=== PATIENT | female | born 1965 | race Caucasian/White ===

== ENCOUNTER 2016-03-17 10:05 | Emergency (ER) | payer BC ==
[~2016-03-17 10:05] MED LIST: AMIT25TA2; FLEXERIL; FLEXERIL OR; IBUPPOW25 OR; TOPI25TA2 OR; TRAM50TA2; TRAM50TA2 OR; VICO5TAB; VICO5TAB OR
--- NOTE | 2016-03-17 10:38 | EDDOCDS ---
Nurse's Notes [facility] Name: Annabella Rodriguez Age: 50 yrs Sex: Female : 1965 Arrival Date: 03/17/2016 Time: 10:05 Bed Triage 1 Private MD: Hermelindo Desouza A. Diagnosis: Acute upper respiratory infection, unspecified Presentation: 03/17 10:09 Presenting complaint: Patient states: Pt presents with c/ sore throat ears hurt dls vomiting since last night. Risk factors: Stridor is not present. Drooling is not present. Shortness of breath is not present. Cellulitis is not present. Adult Sepsis Screening: The patient does not have new or worsening altered mentation. Patient's respiratory rate is less than 22. Systolic blood pressure is greater than 100. Patient has a qSOFA score of 0- Negative Sepsis Screen. Suicide/Homicide risk assessment- the patient denies having any suicidal and/or homicidal ideations and does not present with any other emotional, behavioral or mental health complaints. 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 Transition of care: patient was not received from another setting of care. 10:09 Acuity: ERIK Level 4 dls 10:09 Method Of Arrival: Walkin/Carried/Asstd dls Triage Assessment: 10:11 General: Appears in no apparent distress, slender, well nourished, Behavior is dls cooperative. Pain: Pain currently is 9 out of 10 on a pain scale. HIV screening NA for this visit Offered previously. 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 No barriers to communication noted, The patient speaks fluent Bahraini. - Family history: Not pertinent. - : The pt / caregiver states he / she is not on anticoagulants. Home medication list is obtained from the patient. - Exposure Risk Screening:: None identified. Screenin:35 Screening information is obtained from the patient. Fall risk: No risks identified. jmk Assistance ADL's: requires no assistance with activities of daily living. Abuse/DV Screen: The patient / caregiver reports he/she is: not in a situation that causes fear, pain or injury. Nutritional screening: No deficits noted. Advance Directives: Currently, there is no health care proxy. There is no active DNR order. There is no living will. There is no Power of Clamp Operator. Advance directive information has not previously been placed in an [facility] medical record. home support is adequate. Assessment: 10:35 General: Appears in no apparent distress, without resp distress. conversing lengthy jmk sentences without resp interruption. + nasal congestion noted. EENT: Respiratory: Airway is patent Respiratory effort is even, unlabored, Respiratory pattern is regular. Vital Signs: 10:06 BP 106 / 65; Pulse 73; Resp 18 S; Temp 96.6(O); Pulse Ox 100% on R/A; Weight 58.06 kg dd6 (R); Height 5 ft. 3 in. (160.02 cm) (R); 10:06 Body Mass Index 22.67 (58.06 kg, 160.02 cm) dd6 Vitals: 10:06 Log In Time: March 17, 2016 at 10:04. dd6 ED Course: 10:06 Patient visited by Jorge Luis Child PCA. dd6 10:06 Hermelindo Desouza is Private Physician. dd6 10:06 Patient moved to Waiting dd6 10:07 Patient moved to Pre RCE dd6 10:11 [facility] Butler [facility] dk1 10:11 Lexi Milan MD is Attending Physician. dk1 10:11 Triage Initiated dls 10:13 Patient moved to Triage 1 dls 10:14 Patient visited by Daniel Butler PA-C. dk1 10:26 Hermelindo Desouza is Referral Physician. dk1 10:35 The patient / caregiver is instructed regarding the plan of care and ED course. jmk 10:35 No IV's were initiated during this patient's visit. No procedures done that require jmk assistance. 10:37 [facility] Payment Agreement was scanned into [employer] and attached to record. jp5 Order Results: There are currently no results for this order. Outcome: 10:29 Discharge ordered by Provider. dk1 10:35 Discharge Assessment: Patient awake, alert and oriented x 3. No cognitive and/or jmk functional deficits noted. Patient verbalized understanding of disposition instructions. patient administered narcotics - no. The following High Risk Discharge criteria are identified: None. Condition: good. Discharge instructions given to patient, Instructed on discharge instructions, follow up and referral plans. medication usage, Demonstrated understanding of instructions, medications, Pt was receptive of discharge instructions/ teaching. No special radiology studies were completed. Property :Personal belongings accompany Pt. 10:37 Patient left the ED. mark Signatures: Theodore Cooper,RN Erin Mina RN RN dls Keyes, David, PA-C PA-C dk1 Jorge Luis Child PCA [facility] dd6 Jessica Peraza jp5 MTDD
--- NOTE | 2016-03-17 10:38 | EDDOCDS ---
Physician Documentation [facility] Name: Annabella Rodriguez Age: 50 yrs Sex: Female : 1965 Arrival Date: 03/17/2016 Time: 10:05 Bed Triage 1 Private MD: Hermelindo Desouza A. Disposition: 03/17/16 10:29 Discharged to Home/Self Care. Impression: Acute upper respiratory infection, unspecified. - Condition is Stable. - Discharge Instructions: Upper Respiratory Infection, Adult. - Prescriptions for Tylenol 325 mg Oral Tablet - take 2 tablet by ORAL route every 6 hours as needed; 1 bottle. Mucinex 600 mg - take 1 tablet by ORAL route 2 times per day; 30 tablet. benzonatate 200 mg Oral Capsule - take 1 capsule by ORAL route 3 times per day As needed; 30 capsule. - Work Release Form - 2 day, Medication Reconciliation, Local Pharmacy Hours form. - Follow up: Hermelindo Desouza; When: 2 - 3 days. - Problem is new. - Symptoms are unchanged. Historical: - Allergies: no known allergies; - PSHx: Cholecystectomy; - Social history: Smoking status: Patient uses tobacco products, light tobacco smoker. No barriers to communication noted, The patient speaks fluent Estonian. - Family history: Not pertinent. - : The pt / caregiver states he / she is not on anticoagulants. Home medication list is obtained from the patient. - Exposure Risk Screening:: None identified. 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 3 in. (160.02 cm) (R); 10:06 Body Mass Index 22.67 (58.06 kg, 160.02 cm) dd6 MDM: 10:37 [facility] Payment Agreement was scanned into [employer] and attached to record. jp5 10:38 Financial registration complete. jp5 Signatures: Theodore Cooper RN RN jmk Scott, Debra, RN RN dls Keyes, David, HANNAH PAJessica Motta jp5 The chart was reviewed and I authenticate all verbal orders and agree with the evaluation and treatment provided.Attachments: 10:37 [facility] Payment Agreement jp5 MTDD
--- NOTE | 2016-03-19 11:38 | EDDOCDS ---
Physician Documentation [facility] Name: Annabella Rodriguez Age: 50 yrs Sex: Female : 1965 Arrival Date: 03/17/2016 Time: 10:05 Bed Triage 1 Private MD: Hermelindo Desouza A. Disposition: 03/17/16 10:29 Discharged to Home/Self Care. Impression: Acute upper respiratory infection, unspecified. - Condition is Stable. - Discharge Instructions: Upper Respiratory Infection, Adult. - Prescriptions for Tylenol 325 mg Oral Tablet - take 2 tablet by ORAL route every 6 hours as needed; 1 bottle. Mucinex 600 mg - take 1 tablet by ORAL route 2 times per day; 30 tablet. benzonatate 200 mg Oral Capsule - take 1 capsule by ORAL route 3 times per day As needed; 30 capsule. - Work Release Form - 2 day, Medication Reconciliation, Local Pharmacy Hours form. - Follow up: Hermelindo Desouza; When: 2 - 3 days. - Problem is new. - Symptoms are unchanged. Historical: - Allergies: no known allergies; - PSHx: Cholecystectomy; - Social history: Smoking status: Patient uses tobacco products, light tobacco smoker. No barriers to communication noted, The patient speaks fluent Nepali. - Family history: Not pertinent. - : The pt / caregiver states he / she is not on anticoagulants. Home medication list is obtained from the patient. - Exposure Risk Screening:: None identified. 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 3 in. (160.02 cm) (R); 10:06 Body Mass Index 22.67 (58.06 kg, 160.02 cm) dd6 MDM: 10:37 [facility] Payment Agreement was scanned into [employer] and attached to record. jp5 10:38 Financial registration complete. jp5 14:44 T-Sheet-- Draft Copy was scanned into [employer] and attached to record. gb Signatures: Theodore Cooper RN RN Erin Solano RN RN dls Barnhardt, Gloria, Reg Reg gb Daniel Butler PA-C PA-C dk1 Jessica Peraza jp5 The chart was reviewed and I authenticate all verbal orders and agree with the evaluation and treatment provided.Attachments: 10:37 [facility] Payment Agreement jp5 14:44 T-Sheet-- Draft Copy gb Chart Complete MTDD
--- NOTE | 2016-03-19 11:38 | EDDOCDS ---
Nurse's Notes [facility] Name: Annabella Rodriguez Age: 50 yrs Sex: Female : 1965 Arrival Date: 03/17/2016 Time: 10:05 Bed Triage 1 Private MD: Hermelindo Desouza A. Diagnosis: Acute upper respiratory infection, unspecified Presentation: 03/17 10:09 Presenting complaint: Patient states: Pt presents with c/ sore throat ears hurt dls vomiting since last night. Risk factors: Stridor is not present. Drooling is not present. Shortness of breath is not present. Cellulitis is not present. Adult Sepsis Screening: The patient does not have new or worsening altered mentation. Patient's respiratory rate is less than 22. Systolic blood pressure is greater than 100. Patient has a qSOFA score of 0- Negative Sepsis Screen. Suicide/Homicide risk assessment- the patient denies having any suicidal and/or homicidal ideations and does not present with any other emotional, behavioral or mental health complaints. Status: Patient is not a senior field service engineer or dependent. Transition of care: patient was not received from another setting of care. 10:09 Acuity: ERIK Level 4 dls 10:09 Method Of Arrival: Walkin/Carried/Asstd dls Triage Assessment: 10:11 General: Appears in no apparent distress, slender, well nourished, Behavior is dls cooperative. Pain: Pain currently is 9 out of 10 on a pain scale. HIV screening NA for this visit Offered previously. 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 No barriers to communication noted, The patient speaks fluent Samoan. - Family history: Not pertinent. - : The pt / caregiver states he / she is not on anticoagulants. Home medication list is obtained from the patient. - Exposure Risk Screening:: None identified. Screenin:35 Screening information is obtained from the patient. Fall risk: No risks identified. jmk Assistance ADL's: requires no assistance with activities of daily living. Abuse/DV Screen: The patient / caregiver reports he/she is: not in a situation that causes fear, pain or injury. Nutritional screening: No deficits noted. Advance Directives: Currently, there is no health care proxy. There is no active DNR order. There is no living will. There is no Power of Vocational Training Director. Advance directive information has not previously been placed in an [facility] medical record. home support is adequate. Assessment: 10:35 General: Appears in no apparent distress, without resp distress. conversing lengthy jmk sentences without resp interruption. + nasal congestion noted. EENT: Respiratory: Airway is patent Respiratory effort is even, unlabored, Respiratory pattern is regular. Vital Signs: 10:06 BP 106 / 65; Pulse 73; Resp 18 S; Temp 96.6(O); Pulse Ox 100% on R/A; Weight 58.06 kg dd6 (R); Height 5 ft. 3 in. (160.02 cm) (R); 10:06 Body Mass Index 22.67 (58.06 kg, 160.02 cm) dd6 Vitals: 10:06 Log In Time: March 17, 2016 at 10:04. dd6 ED Course: 10:06 Patient visited by Jorge Luis Child PCA. dd6 10:06 Hermelindo Desouza is Private Physician. dd6 10:06 Patient moved to Waiting dd6 10:07 Patient moved to Pre RCE dd6 10:11 Daniel Butler [facility]. dk1 10:11 Lexi Milan MD is Attending Physician. dk1 10:11 Triage Initiated dls 10:13 Patient moved to Triage 1 dls 10:14 Patient visited by Daniel Butler PA-C. dk1 10:26 Hermelindo Desouza is Referral Physician. dk1 10:35 The patient / caregiver is instructed regarding the plan of care and ED course. jmk 10:35 No IV's were initiated during this patient's visit. No procedures done that require jmk assistance. 10:37 [facility] Payment Agreement was scanned into [employer] and attached to record. jp5 14:44 T-Sheet-- Draft Copy was scanned into [employer] and attached to record. gb Order Results: There are currently no results for this order. Outcome: 10:29 Discharge ordered by Provider. dk1 10:35 Discharge Assessment: Patient awake, alert and oriented x 3. No cognitive and/or jmk functional deficits noted. Patient verbalized understanding of disposition instructions. patient administered narcotics - no. The following High Risk Discharge criteria are identified: None. Condition: good. Discharge instructions given to patient, Instructed on discharge instructions, follow up and referral plans. medication usage, Demonstrated understanding of instructions, medications, Pt was receptive of discharge instructions/ teaching. No special radiology studies were completed. Property :Personal belongings accompany Pt. 10:37 Patient left the ED. mark Signatures: Theodore Cooper RN RN jmk Scott, Debra, RN RN dls Barnhardt, Gloria, Reg Reg Daniel Eldridge PA-C PAFeliciano dk1 Jorge Luis Child PCA SPACE PLANNER dd6 Jessica Peraza jp5 Chart Complete MTDD
--- NOTE | 2016-03-19 11:38 | EDDOCDS ---
Physician Documentation [facility] Name: Annabella Rodriguez Age: 50 yrs Sex: Female : 1965 Arrival Date: 03/17/2016 Time: 10:05 Bed Triage 1 Private MD: Hermelindo Desouza A. Disposition: 03/17/16 10:29 Discharged to Home/Self Care. Impression: Acute upper respiratory infection, unspecified. - Condition is Stable. - Discharge Instructions: Upper Respiratory Infection, Adult. - Prescriptions for Tylenol 325 mg Oral Tablet - take 2 tablet by ORAL route every 6 hours as needed; 1 bottle. Mucinex 600 mg - take 1 tablet by ORAL route 2 times per day; 30 tablet. benzonatate 200 mg Oral Capsule - take 1 capsule by ORAL route 3 times per day As needed; 30 capsule. - Work Release Form - 2 day, Medication Reconciliation, Local Pharmacy Hours form. - Follow up: Hermelindo Desouza; When: 2 - 3 days. - Problem is new. - Symptoms are unchanged. Historical: - Allergies: no known allergies; - PSHx: Cholecystectomy; - Social history: Smoking status: Patient uses tobacco products, light tobacco smoker. No barriers to communication noted, The patient speaks fluent Latvian. - Family history: Not pertinent. - : The pt / caregiver states he / she is not on anticoagulants. Home medication list is obtained from the patient. - Exposure Risk Screening:: None identified. 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 3 in. (160.02 cm) (R); 10:06 Body Mass Index 22.67 (58.06 kg, 160.02 cm) dd6 MDM: 10:37 [facility] Payment Agreement was scanned into [employer] and attached to record. jp5 10:38 Financial registration complete. jp5 14:44 T-Sheet-- Draft Copy was scanned into [employer] and attached to record. gb Signatures: Theodore Cooper RN RN Erin Solano RN RN dls Barnhardt, Gloria, Reg Reg gb Daniel Butler PA-C PA-C dk1 Jessica Peraza jp5 The chart was reviewed and I authenticate all verbal orders and agree with the evaluation and treatment provided.Attachments: 10:37 [facility] Payment Agreement jp5 14:44 T-Sheet-- Draft Copy gb Chart Complete MTDD
== END 2016-03-17 10:37 | disposition home or self-care (01) ==
LOC: M ED 10:05
DX: J06.9 Acute upper respiratory infection, unspecified (principal); Z90.49 Acquired absence of other specified parts of digestive tract; Z72.0 Tobacco use

== ENCOUNTER 2016-07-11 23:06 | Emergency (ER) | payer BC ==
[~2016-07-11] VITALS: Ht 160 cm; Wt 58.1 kg
[2016-07-11 23:07] VITALS: BP 134/84
[2016-07-12] MEDS ORDERED: NAPR500T2 PO (00:07)
[2016-07-12] MEDS: NAPROXEN 250 MG TAB PO ONE (00:07)
[2016-07-12] MEDS ORDERED: KEFL500C7 PO (00:07)
[2016-07-12] MEDS: CEPHALEXIN 500 MG CAP PO ONE (00:07)
[2016-07-12] MEDS ORDERED: NAPR500T PO (00:08)
[2016-07-13] MEDS ORDERED: HYDR-3713 PO (00:36)
[2016-07-13] MEDS ORDERED: CLEO300C2 PO (00:36)
== END 2016-07-12 00:16 | disposition home or self-care (01) ==
LOC: M ED 23:47
DX: L03.113 Cellulitis of right upper limb (principal); S60.561A Insect bite (nonvenomous) of right hand, initial encounter; X58.XXXA Exposure to other specified factors, initial encounter; Y92.89 Other specified places as the place of occurrence of the external cause; Y93.89 Activity, other specified; Y99.8 Other external cause status; F17.210 Nicotine dependence, cigarettes, uncomplicated; Z79.899 Other long term (current) drug therapy

== ENCOUNTER 2016-07-12 21:40 | Emergency (ER) | payer BC ==
[~2016-07-12] VITALS: Ht 160 cm; Wt 58.1 kg
[~2016-07-12 21:40] MED LIST changes: +KEFL500C7 PO; +NAPR500T PO; +NAPR500T2 PO
[2016-07-12] MEDS ORDERED: MORPHINE 4 MG/ML 1ML SYRINGE IV ONE (23:15)
[2016-07-12] MEDS ORDERED: CLINDAMYCIN 600 MG in APPROPRIATE DILUENT 1 EA IV ONE (23:15)
[2016-07-12 23:50] LABS: BASO % 0.6 % (0.0-1.0); EOS # 0.3 K/mm3 (0.0-0.50); EOS % 5.2 % (0.0-3.0); LARGE UNSTAINED CELL # 0.1 K/mm3 (0.0-0.4); LARGE UNSTAINED CELL % 2.4 % (0.0-4.0); LYMPH # 2.3 K/mm3 (1.5-4.5); LYMPH % 37.8 % (24.0-44.0); MEAN CORPUSCULAR HEMOGLOBIN 31.2 pg (27.0-33.0); MEAN CORPUSCULAR HGB CONC 32.4 g/dl (32.0-36.5); MEAN CORPUSCULAR VOLUME 96.3 fl (80.0-96.0); MONO # 0.3 K/mm3 (0.0-0.8); MONO % 5.4 % (0.0-5.0); NEUTROPHILS # 2.8 K/mm3 (1.8-7.7); NEUTROPHILS % 48.6 % (36.0-66.0); PLATELET COUNT, AUTOMATED 178 k/mm3 (150-450); RED CELL DISTRIBUTION WIDTH 12.3 % (11.5-14.5); WHITE BLOOD COUNT 5.7 K/mm3 (4.0-10.0)
[2016-07-13 00:06] LABS: ERYTHROCYTE SEDIMENTATION RATE 8 mm/hr (0-30)
[2016-07-13 00:13] VITALS: BP 127/88
[2016-07-13 00:22] LABS: ANION GAP 5 MEQ/L (8-16); BLOOD UREA NITROGEN 15 MG/DL (7-18); CALCIUM LEVEL 9.1 MG/DL (8.5-10.1); CARBON DIOXIDE LEVEL 28 MEQ/L (21-32); CHLORIDE LEVEL 111 MEQ/L (98-107); CREATININE FOR GFR 0.73 MG/DL (0.55-1.02); GLOMERULAR FILTRATION RATE > 60.0 (>51); GLUCOSE, FASTING 93 MG/DL (70-105); POTASSIUM SERUM 3.8 MEQ/L (3.5-5.1); SODIUM LEVEL 144 MEQ/L (136-145)
[2016-07-13] MEDS ORDERED: HYDR-3713 PO (00:36)
[2016-07-13] MEDS ORDERED: CLEO300C2 PO (00:36)
[2016-07-13] MEDS ORDERED: GI COCKTAIL 50ML BTL(HYOSCYAMINE/MAALOX/LIDOCAINE VISCOUS)(1:3:1) PO ONE (00:45)
== END 2016-07-13 00:54 | disposition home or self-care (01) ==
LOC: M ED 22:46
DX: L03.113 Cellulitis of right upper limb (principal); F17.210 Nicotine dependence, cigarettes, uncomplicated

== ENCOUNTER 2016-08-07 10:52 | Emergency (ER) | payer BC ==
[~2016-08-07] VITALS: Ht 160 cm; Wt 58.5 kg
[2016-08-07 10:52] VITALS: BP 133/75
[~2016-08-07 10:52] MED LIST changes: +CLEO300C2 PO; +HYDR-3713 PO
[2016-08-07] MEDS ORDERED: BENA25TA9 PO (11:28)
[2016-08-07] MEDS ORDERED: PRED50TA PO (11:29)
[2016-08-07] MEDS ORDERED: KEFL500C7 PO (11:29)
== END 2016-08-07 11:45 | disposition home or self-care (01) ==
LOC: M ED 11:33
DX: T78.40XA Allergy, unspecified, initial encounter (principal); M79.89 Other specified soft tissue disorders; F17.210 Nicotine dependence, cigarettes, uncomplicated

== ENCOUNTER 2016-10-26 15:02 | Emergency (ER) | payer BC ==
[~2016-10-26] VITALS: Ht 160 cm; Wt 59.0 kg
[~2016-10-26 15:02] MED LIST changes: +BENA25TA10 PO; +KEFL500C17 PO; -KEFL500C7 PO; -NAPR500T2 PO; +NAPR500T3 PO; +PRED50TA PO
[2016-10-26 15:03] VITALS: BP 124/78
[2016-10-26] MEDS ORDERED: IBUPROFEN 600 MG TAB PO ONE (15:30)
[2016-10-26] MEDS ORDERED: IBUP-1022 PO (16:19)
--- NOTE | 2016-10-26 16:23 | REP ---
Left knee five views : There is no fracture or dislocation. Mineralization and joint spaces are normal. There are no calcifications or foreign bodies. Impression: Negative left knee . Signed by Bubba Lundy MD 10/26/2016 04:16 P
== END 2016-10-26 16:39 | disposition home or self-care (01) ==
LOC: M ED 15:02
DX: S80.02XA Contusion of left knee, initial encounter (principal); S80.212A Abrasion, left knee, initial encounter; W19.XXXA Unspecified fall, initial encounter; Y92.410 Unspecified street and highway as the place of occurrence of the external cause; Y93.9 Activity, unspecified; Y99.9 Unspecified external cause status

== ENCOUNTER 2016-12-21 22:04 | Emergency (ER) | payer BC ==
[~2016-12-21] VITALS: Ht 160 cm; Wt 58.6 kg
[~2016-12-21 22:04] MED LIST changes: +IBUP-1022 PO
[2016-12-21] MEDS ORDERED: ALEV220T26 PO (23:21)
[2016-12-22] MEDS ORDERED: NS 1,000 ML IV ONE (03:30)
[2016-12-22] MEDS ORDERED: KETOROLAC 30 MG/ML VIAL (J1885) IV ONE (03:30)
[2016-12-22 05:43] VITALS: BP 103/64
== END 2016-12-22 05:46 | disposition home or self-care (01) ==
LOC: M ED 22:04
DX: J06.9 Acute upper respiratory infection, unspecified (principal); F17.200 Nicotine dependence, unspecified, uncomplicated
CPT/HCPCS: 87804; 96361; 96374; 99283; J1885

== ENCOUNTER → 2017-04-30 | Outpatient (CLI) | payer BC | LOC: M WHC 15:37 | DX: Z12.31 Encounter for screening mammogram for malignant neoplasm of breast (principal) | CPT/HCPCS: 77067 ==

== ENCOUNTER → 2017-04-30 | Outpatient (REF) | payer BC ==
[2017-05-02 14:10] LABS: HPV HYBRID CAPTURE II Negative (Negative)
== END ==
LOC: M SFHCWAGY 15:41
DX: Z12.4 Encounter for screening for malignant neoplasm of cervix (principal)
CPT/HCPCS: G0123

== ENCOUNTER 2017-06-14 13:37 | Emergency (ER) | payer BC | END 2017-06-14 14:55 | disposition home or self-care (01) | LOC: M ED 13:37 | DX: L03.114 Cellulitis of left upper limb (principal); F17.200 Nicotine dependence, unspecified, uncomplicated | CPT/HCPCS: 99282 ==

== ENCOUNTER 2017-09-16 11:14 | Emergency (ER) | payer BC ==
[2017-09-16 12:18] LABS: AMORPHOUS SEDIMENT RFX SMALL (NEGATIVE); KETONE, URINE AUTO RFX NEGATIVE (NEGATIVE); LEUKOCYTE ESTERASE UR AUTO RFX NEGATIVE (NEGATIVE); MUCUS, URINE RFX SMALL (NEGATIVE); NITRITE, URINE AUTO RFX NEGATIVE (NEGATIVE); RBC, URINE AUTO RFX 63 /HPF (0-3); SPECIFIC GRAVITY UR AUTO RFX 1.019 (1.002-1.035); SQUAM EPITHELIAL CELL UR AURFX 10 /HPF (0-6); WBC, URINE AUTO RFX 4 /HPF (0-3)
[2017-09-16] MEDS: ONDANSETRON 4MG/2ML VIAL (J2405) IV (12:20)
[2017-09-16] MEDS: NS 1,000 ML IV (12:20)
[2017-09-16 12:22] LABS: BASO % 0.6 % (0.0-1.0); EOS # 0.1 10^3/uL (0.0-0.50); EOS % 2.1 % (0.0-3.0); HEMATOCRIT 39.4 % (36.0-47.0); HEMOGLOBIN 13.6 g/dl (12.0-15.5); IMMATURE GRANULOCYTE % 0.3 % (0-3.0); LYMPH # 2.4 10^3/uL (1.5-4.5); MEAN CORPUSCULAR HEMOGLOBIN 31.4 pg (27.0-33.0); MEAN CORPUSCULAR HGB CONC 34.5 g/dl (32.0-36.5); MONO # 0.4 10^3/uL (0.0-0.8); MONO % 6.5 % (0.0-5.0); NEUTROPHILS # 3.8 10^3/uL (1.8-7.7); NEUTROPHILS % 55.5 % (36.0-66.0); PLATELET COUNT, AUTOMATED 193 10^3/uL (150-450); RED BLOOD COUNT 4.33 10^6/uL (4.00-5.40); RED CELL DISTRIBUTION WIDTH 12.7 % (11.5-14.5); WHITE BLOOD COUNT 6.8 10^3/uL (4.0-10.0)
[2017-09-16] MEDS: KETOROLAC 30 MG/ML VIAL (J1885) IV (12:23)
[2017-09-16 12:34] LABS: ALBUMIN 3.8 GM/DL (3.2-5.2); ALBUMIN/GLOBULIN RATIO 0.97 (1.00-1.93); ALKALINE PHOSPHATASE 70 U/L (45-117); ALT/SGPT 22 U/L (12-78); ANION GAP 12 MEQ/L (8-16); AST/SGOT 20 U/L (7-37); BILIRUBIN,DIRECT 0.2 MG/DL (0.0-0.2); BLOOD UREA NITROGEN 14 MG/DL (7-18); CALCIUM LEVEL 9.2 MG/DL (8.5-10.1); CARBON DIOXIDE LEVEL 25 MEQ/L (21-32); CHLORIDE LEVEL 107 MEQ/L (98-107); CREATININE FOR GFR 1.01 MG/DL (0.55-1.30); GLOMERULAR FILTRATION RATE > 60.0 (>51); GLUCOSE, FASTING 96 MG/DL (70-100); LIPASE 157 U/L (73-393); POTASSIUM SERUM 3.7 MEQ/L (3.5-5.1); SODIUM LEVEL 144 MEQ/L (136-145); TOTAL PROTEIN 7.7 GM/DL (6.4-8.2)
[2017-09-16] MEDS: MORPHINE 4 MG/ML 1ML VIAL/SYRINGE (J2270) IV (12:57)
[2017-09-16] MEDS: CIPROFLOXACIN 500 MG TAB PO (13:30)
== END 2017-09-16 13:44 | disposition home or self-care (01) ==
LOC: M ED 11:14
DX: N20.1 Calculus of ureter (principal); N30.00 Acute cystitis without hematuria; Z72.0 Tobacco use
CPT/HCPCS: J2270

== ENCOUNTER → 2017-10-03 | Outpatient (CLI) | payer BC | LOC: M RAD 14:24 | DX: M25.562 Pain in left knee (principal) | CPT/HCPCS: 73564 ==

== ENCOUNTER 2018-05-15 08:34 | Emergency (ER) | payer BC ==
[~2018-05-15] VITALS: Ht 162.6 cm; Wt 58.6 kg
[~2018-05-15 08:34] MED LIST changes: +ALEV220T26 PO; +CIPR-249 PO; +NAPR-50 PO; +NAPR-885 PO; -NAPR500T PO; -NAPR500T3 PO; +NORCOTAB PO; +ZOFR4TAB14 PO
[2018-05-15] MEDS ORDERED: KETOROLAC 30 MG/ML VIAL (J1885) IV ONE (08:45)
[2018-05-15] MEDS ORDERED: NS 1,000 ML IV ONE (08:45)
[2018-05-15] MEDS ORDERED: ACETAMINOPHEN 500 MG TAB PO ONE (08:45)
[2018-05-15] MEDS ORDERED: ONDANSETRON 4MG/2ML VIAL (J2405) IV ONE (08:45)
[2018-05-15 09:09] LABS: BASO # 0.1 10^3/uL (0.0-0.2); BASO % 0.8 % (0.0-1.0); EOS # 0.2 10^3/uL (0.0-0.50); EOS % 3.3 % (0.0-3.0); HEMATOCRIT 38.8 % (36.0-47.0); HEMOGLOBIN 13.1 g/dl (12.0-15.5); LYMPH # 2.6 10^3/uL (1.5-4.5); LYMPH % 41.4 % (24.0-44.0); MEAN CORPUSCULAR HGB CONC 33.8 g/dl (32.0-36.5); MEAN CORPUSCULAR VOLUME 94.9 fl (80.0-96.0); MONO # 0.4 10^3/uL (0.0-0.8); MONO % 6.9 % (0.0-5.0); NEUTROPHILS % 47.4 % (36.0-66.0); PLATELET COUNT, AUTOMATED 195 10^3/uL (150-450); RED BLOOD COUNT 4.09 10^6/uL (4.00-5.40); WHITE BLOOD COUNT 6.4 10^3/uL (4.0-10.0)
[2018-05-15] MEDS ORDERED: DILUENT IV ONE (09:15)
[2018-05-15] MEDS ORDERED: NACL IV ONE (09:15)
[2018-05-15] MEDS ORDERED: KETAMINE IV ONE (09:15)
--- NOTE | 2018-05-15 09:29 | REP ---
Clinical: Right-sided abdominal pain. Technique: Axial noncontrast images from the lung bases to the pubic symphysis with coronal and sagittal re-formations. Comparison: 09/16/2017. Findings: The right kidney demonstrates few nonobstructing intrarenal calculi measuring up to 2.5 mm while the left kidney includes a 10 mm nonobstructing calculus. There is no evidence for hydroureteronephrosis or perinephric stranding. The bladder is unremarkable. Liver, spleen, pancreas, and bilateral adrenal glands are normal. The patient is status post cholecystectomy. The enteric system suggests fecal stasis and possible constipation. Pelvis demonstrates normal bladder and age-appropriate uterus/adnexa. No ascites. No free air. No obvious adenopathy. Abdominal aorta without aneurysm. Musculoskeletal structures are intact. Impression: 1. Bilateral nonobstructing intrarenal calculi without hydronephrosis or perinephric stranding. 2. Moderate fecal stasis requires correlation and may be related to patient's symptoms. Electronically Signed by Blake Gonzáles MD 05/15/2018 09:20 A
[2018-05-15 09:37] LABS: ALBUMIN 3.6 GM/DL (3.2-5.2); ALT/SGPT 27 U/L (12-78); AMYLASE 71 U/L (25-115); BILIRUBIN,DIRECT 0.4 MG/DL (0.0-0.2); BILIRUBIN,TOTAL 1.7 MG/DL (0.2-1.0); BLOOD UREA NITROGEN 18 MG/DL (7-18); CALCIUM LEVEL 8.6 MG/DL (8.5-10.1); CARBON DIOXIDE LEVEL 26 MEQ/L (21-32); CHLORIDE LEVEL 110 MEQ/L (98-107); GLOMERULAR FILTRATION RATE > 60.0 (>51); GLUCOSE, FASTING 84 MG/DL (70-100); LIPASE 131 U/L (73-393); POTASSIUM SERUM 4.4 MEQ/L (3.5-5.1); SODIUM LEVEL 144 MEQ/L (136-145); TOTAL PROTEIN 6.8 GM/DL (6.4-8.2)
[2018-05-15] MEDS ORDERED: BACTRIM 160MG/800MG DS TAB PO ONE (11:15)
[2018-05-15] MEDS ORDERED: IBUP-1022 PO (11:40)
[2018-05-15] MEDS ORDERED: ZOFR4TAB16 PO (11:40)
[2018-05-15] MEDS ORDERED: ACET650T3 PO (11:41)
[2018-05-15] MEDS ORDERED: BACT800T5 PO (11:44)
[2018-05-15 11:49] VITALS: BP 121/63
== END 2018-05-15 12:06 | disposition home or self-care (01) ==
LOC: M ED 08:34
DX: N39.0 Urinary tract infection, site not specified (principal); R11.0 Nausea; K56.41 Fecal impaction; N20.0 Calculus of kidney; F17.200 Nicotine dependence, unspecified, uncomplicated
CPT/HCPCS: 74176; 80048; 80076; 81001; 82150; 83690; 85025; 87086; 93041; 94760; 96374; 96375; 99284; J1885; J2405

== ENCOUNTER → 2018-07-26 | Outpatient (CLI) | payer BC ==
[~2018-07-26] MED LIST changes: +ACET650T3 PO; +BACT800T5 PO; +HYDR-3715 PO; -NAPR-50 PO; +NAPR-837 PO; -NORCOTAB PO; +ZOFR4TAB16 PO
--- NOTE | 2018-07-27 08:04 | REPMRS ---
Patient History The patient states she had a clinical breast exam in 07/2018. Patient is postmenopausal and had first child at age 32. Family history of breast cancer at age 50 or over in paternal aunt, colorectal cancer at age 50 or over in maternal uncle, pancreatic cancer in maternal uncle. Took hormonal contraceptives for 10 years. Digital Woman Screen Mammo: July 26, 2018 - Exam #: [id number] Bilateral CC and MLO view(s) were taken. Technologist: Vicki Washington, Technologist Prior study comparison: April 30, 2017, digital woman screen mammo performed at [facility]. August 28, 2015, right breast digital mammo diagnostic unilateral, performed at [facility]. January 30, 2015, digital woman screen mammo performed at [facility]. FINDINGS: There are scattered fibroglandular densities. The previously noted microcalcifications in the right breast are no longer apparent. There is a moderate amount of residual fibroglandular tissue which is fairly symmetric. There is no interval development of dominant mass, architectural distortion, or clustered microcalcification typical of malignancy. There has been no change in the appearance of the mammogram from the prior studies. 3-D tomosynthesis shows no additional findings. Assessment: BI-RADS/ACR category 1 mammogram. Negative Mammogram. Recommendation Routine screening mammogram of both breasts in 1 year (for women over age 40). This patient's Lifetime Breast Cancer RIsk is estimated at 19.4 %. This mammogram was interpreted with the aid of an FDA-approved computer-aided dectection system. Electronically Signed By: Nir Williamson MD 07/27/18 [id number]
== END ==
LOC: M WHC 14:32
PROVIDERS: ATTEND Nurse Practitioner Family
DX: Z12.31 Encounter for screening mammogram for malignant neoplasm of breast (principal); Z80.3 Family history of malignant neoplasm of breast

== ENCOUNTER 2019-01-07 17:00 | Emergency (ER) | payer BC ==
[~2019-01-07] VITALS: Ht 160 cm; Wt 64.0 kg
--- NOTE | 2019-01-07 18:16 | REPVR ---
PROCEDURE INFORMATION: Exam: CT Head Without Contrast Exam date and time: 01/07/2019 5:46 PM Clinical history: 53 years old, female; Other: Papal edema TECHNIQUE: Imaging protocol: Computed tomography of the head without contrast. Radiation optimization: All CT scans at this facility use at least one of these dose optimization techniques: automated exposure control; mA and/or kV adjustment per patient size (includes targeted exams where dose is matched to clinical indication); or iterative reconstruction. COMPARISON: No relevant prior studies available. FINDINGS: Brain: Normal. No hemorrhage. Unremarkable white matter. No mass effect. Ventricles: Normal. No ventriculomegaly. Bones/joints: Unremarkable. No acute fracture. Sinuses: Visualized sinuses are unremarkable. No fluid levels. Mastoid air cells: Visualized mastoid air cells are well aerated. Soft tissues: Unremarkable. IMPRESSION: No acute intracranial abnormality. Electronically signed by: Amado Molina On 01/07/2019 18:16:32 PM
[2019-01-07] MEDS ORDERED: KETOROLAC TROMETHAMINE 10 MG TAB PO ONE (20:00)
--- NOTE | 2019-01-07 20:07 | REPVR ---
PROCEDURE INFORMATION: Exam: MR Angiogram Head Without Contrast, Venogram Exam date and time: 01/07/2019 7:50 PM Clinical history: 53 years old, female; Other: Papiloedema, PT seeing visual disturbances; Patient HX: Pappiloedema, visual disturbances; Additional info: Please do mrv TECHNIQUE: Imaging protocol: MR angiogram of the head without contrast. Exam focused on the veins. 3D rendering: MIP reconstructed images were created and reviewed. COMPARISON: CT Head without contrast 01/07/2019 5:44 PM FINDINGS: Superior sagittal sinus: Patent. Straight sinus: Patent. Internal cerebral and cortical veins: Unremarkable as visualized. Transverse sinuses: Patent. Sigmoid sinuses: Patent. Internal jugular veins: Visualized segment patent. IMPRESSION: No acute abnormality. Electronically signed by: Amado Molina On 01/07/2019 20:07:14 PM
[2019-01-07 20:45] VITALS: BP 133/69
[2019-01-08] MEDS ORDERED: NAPR-837 PO (21:23)
== END 2019-01-07 21:01 | disposition home or self-care (01) ==
LOC: M ED 17:00
DX: H53.132 Sudden visual loss, left eye (principal); H54.52A1 Low vision left eye category 1, normal vision right eye; H47.10 Unspecified papilledema; H43.392 Other vitreous opacities, left eye; F17.210 Nicotine dependence, cigarettes, uncomplicated

== ENCOUNTER 2019-01-08 20:12 | Emergency (ER) | payer BC ==
[~2019-01-08] VITALS: Ht 160 cm; Wt 63.6 kg
[2019-01-08] MEDS ORDERED: NAPR-837 PO (21:23)
[2019-01-08 21:30] VITALS: BP 154/73
[2019-01-08] MEDS ORDERED: NAPROXEN 250 MG TAB PO ONE (21:30)
== END 2019-01-08 21:50 | disposition home or self-care (01) ==
LOC: M ED 20:12
DX: H43.393 Other vitreous opacities, bilateral (principal); H53.8 Other visual disturbances; F17.210 Nicotine dependence, cigarettes, uncomplicated; Z79.899 Other long term (current) drug therapy

== ENCOUNTER → 2019-01-10 | Outpatient (CLI) | payer BC ==
[2019-01-10 16:45] LABS: INR 0.98; PROTHROMBIN TIME 12.6 SECONDS (11.8-14.0)
[2019-01-10 16:46] LABS: PARTIAL THROMBOPLASTIN TIME 27.4 SECONDS (25.0-38.4)
[2019-01-10 16:57] LABS: TOTAL PROTEIN 7.2 GM/DL (6.4-8.2)
[2019-01-11 09:16] LABS: CRYOGLOBULINS NEGATIVE (NEGATIVE)
[2019-01-11 13:48] LABS: ALBUMIN % 60.3 % (55.8-66.1)
[2019-01-11 13:49] LABS: ALBUMIN 4.34 GM/DL (3.29-5.55); ALPHA-1-GLOBULIN % 3.9 % (2.9-4.9); ALPHA-1-GLOBULINS 0.28 GM/DL (0.17-0.41); ALPHA-2-GLOBULINS 0.66 GM/DL (0.42-0.99); ALPHA-2-GLOBULINS % 9.1 % (7.1-11.8); BETA-1-GLOBULINS 0.48 GM/DL (0.28-0.60); BETA-1-GLOBULINS % 6.6 % (4.7-7.2); BETA-2-GLOBULINS 0.42 GM/DL (0.19-0.55); BETA-2-GLOBULINS % 5.9 % (3.2-6.5); GAMMA GLOBULIN % 14.2 % (11.1-18.8); GAMMA GLOBULINS 1.02 GM/DL (0.65-1.58)
== END ==
LOC: M LAB 15:08
PROVIDERS: ATTEND Ophthalmology Retina Specialist
DX: H34.8192 Central retinal vein occlusion, unspecified eye, stable (principal)

== ENCOUNTER 2019-02-19 12:08 | Emergency (ER) | payer BC, SELFPAY ==
[~2019-02-19] VITALS: Ht 162.6 cm; Wt 60.0 kg
[2019-02-19] MEDS ORDERED: ONDANSETRON 4MG/2ML VIAL (J2405) IV ONE (12:30)
[2019-02-19] MEDS ORDERED: PANTOPRAZOLE 40MG INJ (PROTONIX) (C9113) IV ONE (12:30)
[2019-02-19] MEDS ORDERED: NS 1,000 ML IV ONE ×2 (12:30→13:45)
[2019-02-19 12:39] LABS: BASO % 0.6 % (0.0-1.0); EOS # 0.1 10^3/uL (0.0-0.5); EOS % 1.8 % (0.0-3.0); HEMATOCRIT 41.5 % (36.0-47.0); HEMOGLOBIN 13.7 g/dl (12.0-15.5); LYMPH % 38.4 % (24.0-44.0); MEAN CORPUSCULAR HEMOGLOBIN 31.2 pg (27.0-33.0); MEAN CORPUSCULAR VOLUME 94.5 fl (80.0-96.0); MONO # 0.3 10^3/uL (0.0-0.8); MONO % 5.5 % (0.0-5.0); NEUTROPHILS # 2.7 10^3/uL (1.5-8.5); NEUTROPHILS % 53.5 % (36.0-66.0); PLATELET COUNT, AUTOMATED 228 10^3/uL (150-450); RED BLOOD COUNT 4.39 10^6/uL (4.00-5.40); WHITE BLOOD COUNT 5.1 10^3/uL (4.0-10.0)
[2019-02-19 13:05] LABS: ALBUMIN 4.2 GM/DL (3.2-5.2); ALT/SGPT 18 U/L (12-78); AMYLASE 54 U/L (25-115); BILIRUBIN,DIRECT 0.4 MG/DL (0.0-0.2); BILIRUBIN,TOTAL 1.9 MG/DL (0.2-1.0); BLOOD UREA NITROGEN 17 MG/DL (7-18); CALCIUM LEVEL 9.3 MG/DL (8.5-10.1); CARBON DIOXIDE LEVEL 25 MEQ/L (21-32); CHLORIDE LEVEL 109 MEQ/L (98-107); GLOMERULAR FILTRATION RATE > 60.0 (>51); GLUCOSE, FASTING 93 MG/DL (70-100); LIPASE 141 U/L (73-393); POTASSIUM SERUM 3.3 MEQ/L (3.5-5.1); SODIUM LEVEL 143 MEQ/L (136-145); TOTAL PROTEIN 7.6 GM/DL (6.4-8.2)
[2019-02-19] MEDS ORDERED: ONDANSETRON 4 MG ORAL DISINTEGRATING TAB (Q0162 PER 1MG) PO ONE (13:45)
[2019-02-19] MEDS: GASTROGRAFIN SOLUTION 30ML PO SCH ×2 (14:15→14:48)
[2019-02-19] MEDS ORDERED: ISOVUE-370 76% 100ML VIAL (Q9967) As Ordered ONE (15:20)
[2019-02-19] MEDS ORDERED: CIPR-249 PO (17:32)
[2019-02-19] MEDS ORDERED: ALIG4CAP PO (17:32)
[2019-02-19] MEDS ORDERED: FLAG500T PO (17:32)
[2019-02-19] MEDS ORDERED: ONDA4TAB6 PO (17:35)
[2019-02-19 17:48] VITALS: BP 112/59
--- NOTE | 2019-02-20 08:04 | REP ---
CT ABDOMEN/PELVIS WITH IV AND ORAL CONTRAST: 02/19/2019. COMPARISON: 05/15/2018. CLINICAL HISTORY: Abdominal pain. TECHNIQUE: Oral contrast 10 mL Gastrografin in 290 mL flavored water, followed by bolus 75 mL Isovue-370, scanning through the abdomen/pelvis with coronal and sagittal reconstructions. FINDINGS: CT ABDOMEN: The lung bases show minor dependent atelectatic changes posteriorly in the deep sulci without effusion, infiltrate, or mass. No nodules. Heart is not enlarged. There is no pericardial thickening or effusion. I see no hiatal hernia. Liver is not enlarged, and shows no focal hepatic mass, biliary dilatation, nor adjacent ascites. There is one tiny low density lesion most consistent with a small cyst or hemangioma in the right hepatic lobe about 5.5 mm. There is no splenomegaly or focal splenic lesion. No upper abdominal ascites. Gallbladder is absent with surgical clips in the fossa. Common duct in the stevie hepatis and pancreatic head has maximum diameter 9.8 mm, normal in a postcholecystectomy patient. Pancreatic duct is not abnormally dilated measuring about 2 mm in the pancreatic body. No peripancreatic adenopathy, fluid collections, mass, or inflammatory change. The adrenal glands are normal. Kidneys show function without stone, mass, or cyst on the right. There is 11 mm x 13 mm stone in the renal pelvis on the left with some minimal pelviectasis and calyectasis. Stone is about 3 mm bigger than on the previous study in the collecting system is new. The ureters show normal course to the bladder and are without filling defect or stone. Abdominal images show that portion of colon with oral contrast extending to the sigmoid. There is diverticulosis scattered in the left colon with areas of collapse but no colitis or diverticulitis evident. Small bowel loops without dilatation. There is no perforation or free air in the abdomen/pelvis. I see no ascites in the abdomen or peroneal gutters. Bone windows show vacuum phenomena at L4-5 with degenerative disc disease at L5-S1 with a few millimeters of retrolisthesis due to facet arthropathy but no spondylolysis. No compression deformities are seen. The lower thoracic vertebral bodies are unremarkable. CT PELVIS: Sacrum, pelvis, acetabuli, hips, and ischia show some degenerative changes which are mild, but no fracture or destructive lesions. Uterus slightly tilted towards the right. I do not see adnexal mass. There is no pelvic free fluid. Bladder is partially filled without mass or wall thickening. However, the distal left colon, sigmoid, and rectum all show wall thickening and some irregular stranding adjacent representing proctosigmoiditis. Small bowel loops in the abdomen with contrast and no dilatation. No ventral or inguinal hernia. IMPRESSION: 1. There is a 13 x 11 mm stone in the left renal pelvis with some mild dilatation of the renal pelvis and collecting system, but no significant ureteral dilatation on the left. Right collecting system and ureter normal, no stone. 2. Some mild diverticulosis left colon. The remainder of the abdominal portion of the colon unremarkable. Small bowel loops intact. 3. Distal left colon, sigmoid, and rectum with wall thickening and some pericolonic stranding representing some colitis or proctosigmoiditis. 4. No ascites in the abdomen or pelvis. No mass in the pelvis. No other significant finding. Electronically Signed by Neal Willoughby MD 02/20/2019 08:14 A
[2019-02-20] MEDS ORDERED: DICY1CAP8 PO (23:22)
[2019-02-20] MEDS ORDERED: ONDA4TAB6 PO (23:22)
[2019-02-20] MEDS ORDERED: NORC1TAB7 PO (23:22)
== END 2019-02-19 17:51 | disposition home or self-care (01) ==
LOC: M ED 12:08
DX: K52.9 Noninfective gastroenteritis and colitis, unspecified (principal); N20.0 Calculus of kidney; K57.30 Diverticulosis of large intestine without perforation or abscess without bleeding; R11.2 Nausea with vomiting, unspecified; Z87.19 Personal history of other diseases of the digestive system; F17.210 Nicotine dependence, cigarettes, uncomplicated; Z79.1 Long term (current) use of non-steroidal anti-inflammatories (NSAID); Z79.899 Other long term (current) drug therapy
CPT/HCPCS: 36415; 74177; 80053; 80076; 81001; 82150; 83690; 85025; 87086; 87507; 96360; 99284; Q0162; Q9963; Q9967

== ENCOUNTER 2019-02-20 18:28 | Emergency (ER) | payer SELFPAY ==
[~2019-02-20] VITALS: Ht 162.6 cm; Wt 62.1 kg
[~2019-02-20 18:28] MED LIST changes: +ALIG4CAP PO; +FLAG500T PO; +ONDA4TAB6 PO
[2019-02-20] MEDS ORDERED: NS 1,000 ML IV ONE ×2 (19:15→21:00)
[2019-02-20] MEDS ORDERED: ONDANSETRON 4MG/2ML VIAL (J2405) IV ONE (19:15)
[2019-02-20] MEDS ORDERED: MORPHINE 4 MG/ML 1ML VIAL/SYRINGE (J2270) IV ONE ×2 (19:15→21:00)
[2019-02-20] MEDS ORDERED: metroNIDAZOLE (FLAGYL) 500 MG TAB PO ONE ×2 (19:30→23:30)
[2019-02-20 19:49] LABS: BASO # 0.1 10^3/uL (0.0-0.2); BASO % 0.9 % (0.0-1.0); EOS # 0.2 10^3/uL (0.0-0.5); EOS % 2.4 % (0.0-3.0); HEMATOCRIT 38.1 % (36.0-47.0); LYMPH # 2.7 10^3/uL (1.5-5.0); LYMPH % 41.4 % (24.0-44.0); MEAN CORPUSCULAR HEMOGLOBIN 31.3 pg (27.0-33.0); MEAN CORPUSCULAR HGB CONC 34.1 g/dl (32.0-36.5); MEAN CORPUSCULAR VOLUME 91.8 fl (80.0-96.0); MONO # 0.3 10^3/uL (0.0-0.8); NEUTROPHILS # 3.3 10^3/uL (1.5-8.5); NEUTROPHILS % 50.1 % (36.0-66.0); PLATELET COUNT, AUTOMATED 202 10^3/uL (150-450); RED BLOOD COUNT 4.15 10^6/uL (4.00-5.40); WHITE BLOOD COUNT 6.6 10^3/uL (4.0-10.0)
[2019-02-20 20:16] LABS: ALBUMIN 3.9 GM/DL (3.2-5.2); BILIRUBIN,DIRECT 0.4 MG/DL (0.0-0.2); BILIRUBIN,TOTAL 1.9 MG/DL (0.2-1.0)
--- NOTE | 2019-02-20 22:40 | REPVR ---
PROCEDURE INFORMATION: Exam: US Abdomen Limited, Right Upper Quadrant Exam date and time: 02/20/19 (9:35pm) Age: 53 years old Clinical history: RUQ pain. Elevated bilirubin. Previous cholecystectomy (in 2014 or 2015). TECHNIQUE: Imaging protocol: Real-time ultrasound of the abdomen with image documentation. Examination was focused on the right upper quadrant. COMPARISON: CT ABDOMEN PELVIS of 02/19/19 FINDINGS: The liver is visually normal in size and texture. Previous cholecystectomy. The CBD is dilated (9-13 mm diameter). No ductal stone is seen. The pancreas appears unremarkable. The right kidney measures 9.9 cm in length, with no hydronephrosis appreciated. No ascites is seen. IMPRESSION: Previous cholecystectomy. CBD is dilated (9-13 mm diameter), which can be seen following cholecystectomy. No ductal stone is identified. No abnormal fluid collections. Further evaluation of the biliary tree can be obtained with MRCP, eg, as felt appropriate. Electronically signed by: Lili Perla On 02/20/2019 22:39:45 PM
[2019-02-20] MEDS ORDERED: DICY1CAP8 PO (23:22)
[2019-02-20] MEDS ORDERED: NORC1TAB7 PO (23:22)
[2019-02-20] MEDS ORDERED: ONDA4TAB6 PO (23:22)
[2019-02-20] MEDS ORDERED: NORCO 5/325MG TABLET (BULK FOR ED) PO ONE (23:30)
[2019-02-20] MEDS ORDERED: DICYCLOMINE 10 MG CAP PO ONE (23:30)
[2019-02-20] MEDS ORDERED: ONDANSETRON 4 MG ORAL DISINTEGRATING TAB (Q0162 PER 1MG) PO ONE (23:30)
[2019-02-20 23:46] VITALS: BP 115/62
--- NOTE | 2019-02-21 16:41 | ED PDOC ---
Post-Departure Follow-Up dr anderson faxed formal report of abdmelisa skinner for fu Stefan Dexter MD Feb 21, 2019 16:41
== END 2019-02-20 23:47 | disposition home or self-care (01) ==
LOC: M ED 18:28
DX: K52.9 Noninfective gastroenteritis and colitis, unspecified (principal); R10.84 Generalized abdominal pain; R11.2 Nausea with vomiting, unspecified; K83.8 Other specified diseases of biliary tract; Z90.49 Acquired absence of other specified parts of digestive tract; F17.210 Nicotine dependence, cigarettes, uncomplicated; Z79.1 Long term (current) use of non-steroidal anti-inflammatories (NSAID); Z79.899 Other long term (current) drug therapy
CPT/HCPCS: 76705; 80047; 80076; 83690; 85025; 96361; 96374; 96375; 96376; 99284; J2270; J2405; Q0162

== ENCOUNTER 2019-02-22 20:22 | Emergency (ER) | payer SELFPAY ==
[~2019-02-22] VITALS: Ht 162.6 cm; Wt 64.4 kg
[2019-02-22 20:22] VITALS: BP 156/84
[~2019-02-22 20:22] MED LIST changes: +DICY1CAP8 PO; +NORC1TAB7 PO
[2019-02-23 01:20] LABS: BASO % 0.6 % (0.0-1.0); EOS # 0.2 10^3/uL (0.0-0.5); EOS % 3.1 % (0.0-3.0); HEMATOCRIT 32.9 % (36.0-47.0); HEMOGLOBIN 10.9 g/dl (12.0-15.5); LYMPH # 3.2 10^3/uL (1.5-5.0); LYMPH % 45.7 % (24.0-44.0); MEAN CORPUSCULAR HEMOGLOBIN 31.3 pg (27.0-33.0); MEAN CORPUSCULAR HGB CONC 33.1 g/dl (32.0-36.5); MEAN CORPUSCULAR VOLUME 94.5 fl (80.0-96.0); MONO # 0.4 10^3/uL (0.0-0.8); MONO % 5.4 % (0.0-5.0); NEUTROPHILS # 3.1 10^3/uL (1.5-8.5); NEUTROPHILS % 44.9 % (36.0-66.0); PLATELET COUNT, AUTOMATED 153 10^3/uL (150-450); RED BLOOD COUNT 3.48 10^6/uL (4.00-5.40)
[2019-02-23 01:50] LABS: ALBUMIN 3.2 GM/DL (3.2-5.2); BILIRUBIN,DIRECT 0.2 MG/DL (0.0-0.2); BILIRUBIN,TOTAL 0.7 MG/DL (0.2-1.0); TOTAL PROTEIN 5.8 GM/DL (6.4-8.2)
== END 2019-02-23 02:25 | disposition home or self-care (01) ==
LOC: M ED 20:22
DX: K52.9 Noninfective gastroenteritis and colitis, unspecified (principal)

== ENCOUNTER 2019-07-08 19:38 | Emergency (ER) | payer BC, SELFPAY ==
[~2019-07-08] VITALS: Ht 160 cm; Wt 59.1 kg
[2019-07-08] MEDS ORDERED: ONDANSETRON 4MG/2ML VIAL IV ONE (20:30)
[2019-07-08] MEDS ORDERED: NS 1,000 ML IV ONE (20:30)
[2019-07-08] MEDS ORDERED: KETOROLAC 30 MG/ML 1ML VIAL IV ONE (20:30)
[2019-07-08 21:09] LABS: BASO % 0.3 % (0.0-1.0); EOS # 0.1 10^3/uL (0.0-0.5); EOS % 0.6 % (0.0-3.0); HEMATOCRIT 40.7 % (36.0-47.0); HEMOGLOBIN 13.5 g/dl (12.0-15.5); LYMPH # 1.7 10^3/uL (1.5-5.0); LYMPH % 19.8 % (24.0-44.0); MEAN CORPUSCULAR HEMOGLOBIN 30.5 pg (27.0-33.0); MEAN CORPUSCULAR HGB CONC 33.2 g/dl (32.0-36.5); MEAN CORPUSCULAR VOLUME 91.9 fl (80.0-96.0); MONO # 0.7 10^3/uL (0.0-0.8); MONO % 7.8 % (0.0-5.0); NEUTROPHILS # 6.1 10^3/uL (1.5-8.5); NEUTROPHILS % 71.2 % (36.0-66.0); PLATELET COUNT, AUTOMATED 187 10^3/uL (150-450); RED BLOOD COUNT 4.43 10^6/uL (4.00-5.40); WHITE BLOOD COUNT 8.6 10^3/uL (4.0-10.0)
[2019-07-08 21:40] LABS: ALBUMIN 3.6 GM/DL (3.2-5.2); BILIRUBIN,DIRECT 0.3 MG/DL (0.0-0.2); BILIRUBIN,TOTAL 1.8 MG/DL (0.2-1.0); TOTAL PROTEIN 6.7 GM/DL (6.4-8.2)
--- NOTE | 2019-07-08 22:41 | REPVR ---
PROCEDURE INFORMATION: Exam: CT Abdomen And Pelvis Without Contrast Exam date and time: 07/08/2019 10:31 PM Age: 53 years old Clinical indication: Abdominal pain; Flank; Left; Additional info: Left flank pain with hematuria R/O kidney stone TECHNIQUE: Imaging protocol: Computed tomography of the abdomen and pelvis without contrast. Radiation optimization: All CT scans at this facility use at least one of these dose optimization techniques: automated exposure control; mA and/or kV adjustment per patient size (includes targeted exams where dose is matched to clinical indication); or iterative reconstruction. COMPARISON: CT ABD/PEL W/IV ORAL CONTRAS 02/19/2019 4:06 PM FINDINGS: Liver: Normal. No mass. Gallbladder and bile ducts: Normal. No calcified stones. No ductal dilation. Pancreas: Normal. No ductal dilation. Spleen: Normal. No splenomegaly. Adrenals: Normal. No mass. Kidneys and ureters: 1.4 cm calculus in the left pelvis with the left hydronephrosis. Multiple nonobstructing calculi in bilateral kidneys. The largest measures 6 mm in the right upper pole. Stomach and bowel: Unremarkable. No obstruction. No mucosal thickening. Appendix: No evidence of appendicitis. Intraperitoneal space: Unremarkable. No free air. No significant fluid collection. Vasculature: Unremarkable. No abdominal aortic aneurysm. Lymph nodes: Unremarkable. No enlarged lymph nodes. Bladder: Unremarkable as visualized. Reproductive: Unremarkable as visualized. Bones/joints: Unremarkable. No acute fracture. Soft tissues: Unremarkable. IMPRESSION: Obstructing calculus measuring 1.4 cm in the left pelvis with the left hydronephrosis. Electronically signed by: Amado Molina On 07/08/2019 22:41:09 PM
[2019-07-08] MEDS ORDERED: NORCO 5/325MG TABLET (BULK FOR ED) PO ONE (23:00)
[2019-07-08] MEDS ORDERED: MORPHINE 4 MG/ML 1ML VIAL/SYRINGE (J2270) IV ONE (23:00)
[2019-07-08] MEDS ORDERED: NORC1TAB7 PO (23:02)
[2019-07-08] MEDS ORDERED: KETO10TAB PO (23:02)
[2019-07-08 23:08] VITALS: BP 134/66
== END 2019-07-08 23:32 | disposition home or self-care (01) ==
LOC: M ED 19:38
DX: N20.0 Calculus of kidney (principal); R11.2 Nausea with vomiting, unspecified; H35.30 Unspecified macular degeneration; F17.200 Nicotine dependence, unspecified, uncomplicated
CPT/HCPCS: 74176; 80047; 80076; 81001; 83690; 85025; 96374; 96375; 99284; J1885; J2270; J2405

== ENCOUNTER → 2019-07-16 | Outpatient (CLI) | payer BC ==
[~2019-07-16] MED LIST changes: +KETO10TAB PO
[2019-07-16 11:10] LABS: HEMATOCRIT 38.3 % (36.0-47.0); HEMOGLOBIN 12.6 g/dl (12.0-15.5); MEAN CORPUSCULAR HEMOGLOBIN 30.8 pg (27.0-33.0); MEAN CORPUSCULAR HGB CONC 32.9 g/dl (32.0-36.5); MEAN CORPUSCULAR VOLUME 93.6 fl (80.0-96.0); PLATELET COUNT, AUTOMATED 214 10^3/uL (150-450); RED BLOOD COUNT 4.09 10^6/uL (4.00-5.40); WHITE BLOOD COUNT 6.4 10^3/uL (4.0-10.0)
[2019-07-16 11:15] LABS: APPEARANCE, URINE HAZY (CLEAR); BACTERIA, URINE AUTO 1+ (NEGATIVE); BILIRUBIN, URINE AUTO NEGATIVE (NEGATIVE); BLOOD, URINE BLOOD 2+ (NEGATIVE); COLOR, URINE YELLOW (YELLOW); GLUCOSE, URINE (UA) AUTO NEGATIVE (NEGATIVE); KETONE, URINE AUTO NEGATIVE (NEGATIVE); LEUKOCYTE ESTERASE, URINE AUTO 2+ (NEGATIVE); MUCUS, URINE SMALL (NEGATIVE); NITRITE, URINE AUTO NEGATIVE (NEGATIVE); PROTEIN, URINE AUTO 2+ mg/dL (NEGATIVE); RBC, URINE AUTO 67 /HPF (0-3); SPECIFIC GRAVITY URINE AUTO 1.016 (1.002-1.035); SQUAMOUS EPITHELIAL CELL UR AU 2 /HPF (0-6); UROBILINOGEN, URINE AUTO 0.2 mg/dL (0.0-2.0); WBC, URINE AUTO 29 /HPF (0-3)
[2019-07-16 11:23] LABS: PROTHROMBIN TIME 12.9 SECONDS (11.8-14.0)
[2019-07-16 11:24] LABS: PARTIAL THROMBOPLASTIN TIME 28.2 SECONDS (25.0-38.4)
[2019-07-16 11:33] LABS: BLOOD UREA NITROGEN 15 MG/DL (7-18); CALCIUM LEVEL 8.7 MG/DL (8.5-10.1); CARBON DIOXIDE LEVEL 28 MEQ/L (21-32); CHLORIDE LEVEL 109 MEQ/L (98-107); CREATININE FOR GFR 0.76 MG/DL (0.55-1.30); GLOMERULAR FILTRATION RATE > 60.0 (>51); GLUCOSE, FASTING 73 MG/DL (70-100); POTASSIUM SERUM 3.9 MEQ/L (3.5-5.1); SODIUM LEVEL 142 MEQ/L (136-145)
--- NOTE | 2019-07-16 11:39 | REP ---
Clinical: Preoperative assessment. Kidney stone . Comparison: 08/16/2011 . Technique: PA and lateral. Findings: The mediastinum and cardiac silhouette are normal. The lung mckinley are clear and without acute consolidation, effusion, or pneumothorax. The skeletal structures are intact and normal. Impression: 1. No acute cardiopulmonary process. Electronically Signed by Blake Gonzáles MD 07/16/2019 11:30 A
--- NOTE | 2019-07-16 19:38 | ECGEPIP ---
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
== END ==
LOC: M LAB 10:39
PROVIDERS: ATTEND Nurse Practitioner Women's Health
DX: Z01.818 Encounter for other preprocedural examination (principal); N20.0 Calculus of kidney

== ENCOUNTER → 2019-07-18 | Outpatient (CLI) | payer BC | LOC: M LABSMTC 10:05 | PROVIDERS: ATTEND Anesthesiology | DX: Z11.59 Encounter for screening for other viral diseases (principal); Z01.818 Encounter for other preprocedural examination ==

== ENCOUNTER 2019-07-21 11:03 | Day surgery (SDC) | payer BC ==
[~2019-07-21] VITALS: Ht 160 cm; Wt 62.1 kg
[~2019-07-21 11:03] MED LIST changes: +LR 1,000 ML IV ONE; +ceFAZolin SOD 2 GM in IV 1 EA IV ONE
[2019-07-21] MEDS ORDERED: MIDAZOLAM INJ 2MG/2ML VIAL (J2250 PER 1MG) As Ordered ONE (13:12)
[2019-07-21] MEDS ORDERED: fentaNYL 100 MCG/2 ML INJECTION (J3010) As Ordered ONE (13:12)
[2019-07-21] MEDS ORDERED: ONDANSETRON 4MG/2ML VIAL As Ordered ONE (13:13)
[2019-07-21] MEDS ORDERED: propofoL 200 MG/20 ML VIAL As Ordered ONE (13:13)
[2019-07-21] MEDS ORDERED: LIDOCAINE 2% 100MG/5ML SDV (FOR ANES.) As Ordered ONE (13:13)
[2019-07-21] MEDS ORDERED: dexameTHASONE 4 MG/ML 1ML VIAL (J1100 PER 1MG) As Ordered ONE (13:13)
[2019-07-21] MEDS ORDERED: CONRAY-60 60% 50ML VIAL (Q9961) As Ordered ONE (13:20)
[2019-07-21] MEDS: PERCOCET 5MG/325MG TAB PO PRN ×2 (15:25→16:20)
[2019-07-21] MEDS ORDERED: LR 1,000 ML IV SCH (15:30)
[2019-07-21] MEDS ORDERED: ONDANSETRON 4MG/2ML VIAL IV PRN (15:30)
[2019-07-21] MEDS ORDERED: PERCOCET 5MG/325MG TAB PO PRN (15:30)
[2019-07-21] MEDS ORDERED: fentaNYL 100 MCG/2 ML INJECTION (J3010) IV PRN (15:30)
[2019-07-21] MEDS ORDERED: oxyBUTYnin 5 MG TAB PO PRN (15:30)
--- NOTE | 2019-07-21 15:44 | REP ---
RETROGRADE PYELOGRAM: Four views. HISTORY: Bilateral cystoscopy and ureteroscopy. 20 seconds of fluoroscopy time is reported. FINDINGS: A sequence of four last image hold fluoroscopically obtained spot radiographs of the abdomen document bilateral ureteral cannulation, contrast injection, and ureteral stent placement. Electronically Signed by Alfonso Williamson MD 07/21/2019 04:15 P
[2019-07-21] MEDS ORDERED: ACETAMINOPHEN 1000MG 100ML IV BTL (OFIRMEV) (J0131 PER 10MG) As Ordered ONE (16:01)
[2019-07-21 17:00] VITALS: BP 143/74
--- NOTE | 2019-07-25 07:37 | RO ---
DATE OF PROCEDURE: 07/21/2019 PREPROCEDURE DIAGNOSIS: Bladder kidney stones. POSTPROCEDURE DIAGNOSIS: Bladder kidney stones. PROCEDURE: Cystoscopy, bilateral ureteroscopy with laser lithotripsy and basket extraction of stones, bilateral retrograde pyelogram with intraoperative interpretation of images, bilateral ureteral stent placement. SURGEON: Dr. Carlin Shafer POWER DISTRIBUTOR: None. ANESTHESIA: General. OPERATIVE INDICATIONS: This is a 54-year-old female who was found to have bilateral kidney stones with an approximately 5-6 mm stone in her right kidney and an approximately 1.5 cm obstructing stone in her left kidney. She was brought to the operating room today for treatment. DESCRIPTION OF PROCEDURE: The patient was brought to the operating room and general anesthesia was induced. Prophylactic antibiotics were infused. She was placed in dorsal lithotomy position and prepped and draped in the usual sterile fashion. A rigid cystoscope was inserted into the urethral meatus and advanced into the bladder. A guidewire was advanced up the right collecting system. I then advanced the ureteral access sheath up the right collecting system. I went up the access sheath with a flexible ureteroscope and examined the right kidney thoroughly. Within an approximately mid pole calyx a 6 mm stone was seen. The stone was grasped with a basket and withdrawn. No additional stones were seen. A retrograde pyelogram was performed and was notable for mild right hydronephrosis with no extravasation. I then withdrew the ureteroscope along with access sheath and no additional stones were seen within the ureter. I then utilized the wire to advance a 6 Paraguayan x 22-32 cm JJ ureteral stent into the right collecting system. The wire was removed and there were adequate curls of the stent in the right renal pelvis and in the bladder. Next, I advanced a guidewire up the left collecting system. I advanced the ureteral access sheath up the left collecting system. I went up the access sheath and at the level of the ureteropelvic junction a 1.5 cm stone was seen. I then utilized an Dr. [employer] laser fiber to dust the majority of the stone. Larger stone fragments were removed with the basket. After removing a majority of the large fragments with the basket, I went back in with the laser again and dusted any residual stone fragments until they were tiny enough to pass. Once I was satisfied all the remaining fragments were small enough to pass, a retrograde pyelogram was performed. It was notable for mild left hydronephrosis with no extravasation. I then withdrew the ureteroscope along with access sheath and no additional stones were seen within the ureter. I utilized wire to advance a 7 [place]ayan x 22-32 cm JJ ureteral stent into the left collecting system. The wire was removed and there were adequate curls of the stent in the left renal pelvis and in the bladder. The bladder emptied of all fluids and this marked the conclusion of the procedure. The patient was taken out of the dorsal lithotomy position, awakened from anesthesia and transported to the recovery room in stable condition. Estimated blood loss: 5 mL. Complications: None. Specimen: Kidney stone fragments. Plan: I will have the patient followup in the clinic in approximately 2-3 weeks with imaging prior to assess for residual stone burden. If I do not see any residual stones, I will remove her stents at that time.
== END 2019-07-21 17:13 | disposition home or self-care (01) ==
LOC: M SDC 11:03
PROVIDERS: ATTEND Urology
DX: N20.0 Calculus of kidney (principal); K58.0 Irritable bowel syndrome with diarrhea; K21.9 Gastro-esophageal reflux disease without esophagitis; N87.0 Mild cervical dysplasia; K02.9 Dental caries, unspecified; M54.16 Radiculopathy, lumbar region; M48.061 Spinal stenosis, lumbar region without neurogenic claudication; M17.11 Unilateral primary osteoarthritis, right knee; E55.9 Vitamin D deficiency, unspecified; F17.210 Nicotine dependence, cigarettes, uncomplicated; Z83.49 Family history of other endocrine, nutritional and metabolic diseases; Z79.899 Other long term (current) drug therapy; Z79.1 Long term (current) use of non-steroidal anti-inflammatories (NSAID); Z79.891 Long term (current) use of opiate analgesic
CPT/HCPCS: 52356; 74420; 82365; 88300; C1769; C1894; C2617; J0131; J0690; J1100; J2250; J2405; J3010; Q9961

== ENCOUNTER 2019-07-24 15:21 | Emergency (ER) | payer BC ==
[~2019-07-24] VITALS: Ht 160 cm; Wt 62.4 kg
[~2019-07-24 15:21] MED LIST changes: -LR 1,000 ML IV ONE; -ceFAZolin SOD 2 GM in IV 1 EA IV ONE
[2019-07-24] MEDS ORDERED: DICY20TA11 PO (15:28)
[2019-07-24] MEDS ORDERED: OXYC1TAB23 PO (15:28)
[2019-07-24] MEDS ORDERED: TAMS1CAP17 PO (15:28)
[2019-07-24] MEDS ORDERED: OXYB10TA23 PO (15:28)
[2019-07-24] MEDS ORDERED: ONDANSETRON 4MG/2ML VIAL IV ONE (16:00)
[2019-07-24] MEDS ORDERED: KETOROLAC 30 MG/ML 1ML VIAL IV ONE (16:00)
[2019-07-24] MEDS ORDERED: BELLADONNA 16.2mg/OPIUM 60mg 1 EA SUPP PR ONE (17:00)
[2019-07-24 18:16] VITALS: BP 107/57
--- NOTE | 2019-07-24 23:02 | REP ---
REASON: Followup. COMPARISON: 07/08/2019, which showed a 1.4 cm sized calculus in the left renal pelvis. The lung bases are clear and unchanged. Since the last examination, bilateral renal collecting system pigtail stents have been placed. The proximal portion of each stent is in the renal pelvis and the distal portion in the urinary bladder. There are bilateral nonobstructing nephroliths. The 1.7 cm sized calcification seen previously in the left renal pelvis is not seen within the left renal pelvis today. There is no jonatan hydronephrosis or hydroureter. There are no urinary bladder calcifications. Limited evaluation of the solid intra-abdominal organs showed no changes from the prior exam. Limited evaluation of the pancreas and adrenal glands showed no changes from the prior exam. Surgical clips are again seen in the gallbladder fossa from previous cholecystectomy. There is no change in appearance of the abdominal aorta or para-aortic regions. There is no evidence of free air in the abdomen or pelvis. There is a trace amount of free pelvic fluid, which is probably physiologic and represents a change from the prior exam. Limited evaluation of the bowel loops and the mesenteries within the abdomen and pelvis showed no gross abnormalities or significant changes from the prior exam. There is no change in the osseous structures. IMPRESSION: Bilateral renal stents and other findings, as described above. There is no evidence of acute disease. Electronically Signed by Fritz Raymundo DO 07/25/2019 08:28 A
== END 2019-07-24 19:04 | disposition home or self-care (01) ==
LOC: M ED 15:21
DX: N32.89 Other specified disorders of bladder (principal); T83.84XA Pain due to genitourinary prosthetic devices, implants and grafts, initial encounter; F17.218 Nicotine dependence, cigarettes, with other nicotine-induced disorders
CPT/HCPCS: 74176; 81001; 87086; 96374; 96375; 99284; J1885; J2405

== ENCOUNTER → 2019-07-30 | Outpatient (CLI) | payer BC ==
[~2019-07-30] MED LIST changes: +DICY20TA11 PO; +OXYB10TA23 PO; +OXYC1TAB23 PO; +TAMS1CAP17 PO
--- NOTE | 2019-07-30 09:27 | REP ---
Clinical: Nephrolithiasis. Technique: Single supine view of the abdomen and pelvis. Correlation: CT dated 07/24/2019. Findings: Bilateral ureteral stents in satisfactory position. Multiple left intrarenal calculi are identified. No obvious right nephroureterolithiasis identified. Bowel gas pattern is nonspecific. Evidence of prior cholecystectomy. Skeletal structures are intact. Impression: Bilateral ureteral stents in satisfactory position. Residual left intrarenal calculi noted. No obvious right urinary tract calcifications identified. Electronically Signed by Blake Gonzáles MD 07/30/2019 09:18 A
== END ==
LOC: M RAD 08:08
PROVIDERS: ATTEND Urology
DX: N20.0 Calculus of kidney (principal); Z96.0 Presence of urogenital implants

== ENCOUNTER → 2019-09-13 | Outpatient (CLI) | payer BC ==
--- NOTE | 2019-09-13 12:04 | REPMRS ---
Patient History The patient states she had a clinical breast exam in August 2019. Family history of breast cancer at age 50 or over in paternal aunt, colorectal cancer at age 50 or over in maternal uncle, pancreatic cancer in maternal uncle. Took hormonal contraceptives for 10 years. Digital Woman Screen Mammo: September 13, 2019 - Exam #: [id number] Bilateral CC and MLO view(s) were taken. Technologist: Adele Rodriguez, Technologist Prior study comparison: July 26, 2018, bilateral digital woman screen mammo performed at [facility]. April 30, 2017, digital woman screen mammo performed at [facility]. August 28, 2015, right breast digital mammo diagnostic unilateral, performed at [facility]. January 30, 2015, digital woman screen mammo performed at [facility]. FINDINGS: The breast tissue is heterogeneously dense. This may lower the sensitivity of mammography. The Volpara volumetric breast density category is: C. There is a moderate amount of heterogeneously dense fibroglandular tissue which is fairly symmetric. There is no interval development of dominant mass, architectural distortion, or grouped microcalcification typical of malignancy. There has been no change in the appearance of the mammogram from the prior studies. 3-D tomosynthesis shows no additional findings. Assessment: BI-RADS/ACR category 1 mammogram. Negative Mammogram. Recommendation Routine screening mammogram of both breasts in 1 year (for women over age 40). This patient's Lifetime Breast Cancer RIsk is estimated at 18.9 %. This mammogram was interpreted with the aid of an FDA-approved computer-aided dectection system. Electronically Signed By: Nir Williamson MD 09/13/19 [id number]
== END ==
LOC: M WHC 11:00
PROVIDERS: ATTEND Nurse Practitioner Family
DX: Z12.31 Encounter for screening mammogram for malignant neoplasm of breast (principal)

== ENCOUNTER → 2019-09-13 | Outpatient (REF) | payer BC | LOC: M SFHCWAGY 17:22 | PROVIDERS: ATTEND Nurse Practitioner Family | DX: Z12.4 Encounter for screening for malignant neoplasm of cervix (principal) | CPT/HCPCS: 87624; G0123 ==

== ENCOUNTER → 2020-01-27 | Outpatient (CLI) | payer BC | LOC: M LABSMTC 09:37 | PROVIDERS: ATTEND Orthopaedic Surgery | DX: Z01.812 Encounter for preprocedural laboratory examination (principal); Z20.828 Contact with and (suspected) exposure to other viral communicable diseases ==

== ENCOUNTER → 2020-02-07 | Outpatient (CLI) | payer BC ==
--- NOTE | 2020-02-07 10:34 | REP ---
INDICATION: PAIN IN LEFT LOWER LEG- PT TO WAIT COMPARISON: None. TECHNIQUE: Chilel scale and color Doppler evaluation left lower extremity using linear high frequency transducer. FINDINGS: Ultrasound examination of the left lower extremity deep venous structures from the common femoral vein to the popliteal vein demonstrates normal compressibility flow and wave patterns in response to respiration and augmentation. There is no evidence for deep venous thrombosis. IMPRESSION: No evidence for deep venous thrombosis. <Electronically signed by Blake Gonzáles > 02/07/20 [id number]
== END ==
LOC: M RAD 10:04
PROVIDERS: ATTEND Physician Assistant
DX: M79.662 Pain in left lower leg (principal)

== ENCOUNTER → 2020-03-30 | Outpatient (CLI) | payer BC ==
[~2020-03-30] MED LIST changes: +PROHANCE 279.3MG/ML 15ML VIAL As Ordered ONE
--- NOTE | 2020-03-30 13:09 | REP ---
INDICATION: HIGH RISK BREAST CA. COMPARISON: Mammogram 09/13/2019. TECHNIQUE: Three Martha MRI imaging was performed with a dedicated breast coil. Axial, coronal, and sagittal T1 and T2 weighted scans were obtained with and without fat saturation in the usual fashion. The study includes dynamically acquired post gadolinium-enhanced imaging with image subtraction. Maximum intensity projection and multi planar reformation imaging is included as well. This study is interpreted with the aid of SynackD, an FDA approved computer aided detection (CAD) software program, on a dedicated breast MRI workstation. The gadolinium enhancement dose is 11 mL of intravenous ProHance. FINDINGS: Moderate fibroglandular tissue is present bilaterally in a fairly symmetrical pattern. No significant cystic changes seen in either breast. There is no evidence of axillary adenopathy. There is very mild background parenchymal enhancement. There is no suspicious enhancing mass or morphologic abnormality. IMPRESSION: BI-RADS category 1, negative bilateral breast MRI. No suspicious enhancing mass or morphologic abnormality. <Electronically signed by Bubba Chilel > 03/30/20 [id number]
== END ==
LOC: M RAD 10:37
PROVIDERS: ATTEND Nurse Practitioner Family
DX: Z12.31 Encounter for screening mammogram for malignant neoplasm of breast (principal); Z91.89 Other specified personal risk factors, not elsewhere classified
CPT/HCPCS: A9576; C8908

== ENCOUNTER → 2020-09-26 | Outpatient (CLI) | payer BC ==
[~2020-09-26] MED LIST changes: -PROHANCE 279.3MG/ML 15ML VIAL As Ordered ONE
[2020-09-26 15:14] LABS: HEMATOCRIT 37.4 % (36.0-47.0); HEMOGLOBIN 12.2 g/dl (12.0-15.5); MEAN CORPUSCULAR HGB CONC 32.6 g/dl (32.0-36.5); MEAN CORPUSCULAR VOLUME 94.9 fl (80.0-96.0); PLATELET COUNT, AUTOMATED 199 10^3/uL (150-450); RED BLOOD COUNT 3.94 10^6/uL (4.00-5.40); WHITE BLOOD COUNT 5.1 10^3/uL (4.0-10.0)
[2020-09-26 15:41] LABS: ALBUMIN 3.7 GM/DL (3.2-5.2); ALT/SGPT 25 U/L (12-78); BILIRUBIN,TOTAL 1.2 MG/DL (0.2-1.0); BLOOD UREA NITROGEN 9 MG/DL (7-18); CALCIUM LEVEL 8.7 MG/DL (8.5-10.1); CARBON DIOXIDE LEVEL 28 MEQ/L (21-32); CHLORIDE LEVEL 109 MEQ/L (98-107); CHOLESTEROL LEVEL 173 MG/DL (<200); CHOLESTEROL RISK RATIO 2.059 (<5); GLOMERULAR FILTRATION RATE > 60.0 (>51); GLUCOSE, FASTING 81 MG/DL (70-100); HDL CHOLESTEROL 84 MG/DL (>40); LDL CHOLESTEROL 69 MG/DL (<100); NON-HDL-C 89 MG/DL; POTASSIUM SERUM 3.6 MEQ/L (3.5-5.1); SODIUM LEVEL 141 MEQ/L (136-145); TOTAL PROTEIN 6.8 GM/DL (6.4-8.2); TRIGLYCERIDES LEVEL 102 MG/DL (<150)
[2020-09-26 15:49] LABS: TOTAL 25(OH) VITAMIN D 22.2 NG/ML (30.0-100.0)
== END ==
LOC: M LAB 14:45
PROVIDERS: ATTEND Family Medicine
DX: E55.9 Vitamin D deficiency, unspecified (principal)

== ENCOUNTER → 2020-11-15 | Outpatient (CLI) | payer BC ==
--- NOTE | 2020-11-15 11:10 | REPMRS ---
Patient History The patient states she had a clinical breast exam in 2020. Family history of breast cancer at age 50 or over in paternal aunt, colorectal cancer at age 50 or over in maternal uncle, pancreatic cancer in maternal uncle. Took hormonal contraceptives for 10 years. No breast complaints today Patient signed the MRS sheet Patient states she had both Pfizer vaccine in her left arm during May but could not give me dates Priors on PACS Patient Identification Verified Digital Woman Screen Mammo: November 15, 2020 - Exam #: [id number] Bilateral CC and MLO view(s) were taken. Technologist: Adele Rodriguez, Technologist Prior study comparison: September 13, 2019, bilateral digital woman screen mammo performed at [facility]. July 26, 2018, bilateral digital woman screen mammo performed at [facility]. April 30, 2017, digital woman screen mammo performed at [facility]. FINDINGS: The breast tissue is heterogeneously dense. This may lower the sensitivity of mammography. The Volpara volumetric breast density category is: C. There is a moderate amount of heterogeneously dense fibroglandular tissue which is fairly symmetric. There is no interval development of dominant mass, architectural distortion, or grouped microcalcification typical of malignancy. There has been no change in the appearance of the mammogram from the prior studies. 3-D tomosynthesis shows no additional findings. Assessment: BI-RADS/ACR category 1 mammogram. Negative Mammogram. Recommendation Routine screening mammogram of both breasts in 1 year (for women over age 40). This patient's [facility] Lifetime Breast Cancer RIsk is estimated at 18.5 %. This mammogram was interpreted with the aid of an FDA-approved computer-aided dectection system. Electronically Signed By: Nir Williamson MD 11/15/20 1044
== END ==
LOC: M WHC 10:03
PROVIDERS: ATTEND Nurse Practitioner Women's Health
DX: Z12.31 Encounter for screening mammogram for malignant neoplasm of breast (principal)

== ENCOUNTER → 2020-11-15 | Outpatient (REF) | payer BC | LOC: M SFHCWAGY 13:12 | PROVIDERS: ATTEND Nurse Practitioner Women's Health | DX: Z12.4 Encounter for screening for malignant neoplasm of cervix (principal) | CPT/HCPCS: 87624; G0123 ==

== ENCOUNTER → 2021-04-12 | Outpatient (CLI) | payer BC ==
[~2021-04-12] MED LIST changes: -DICY20TA11 PO; +DICY20TA20 PO; +PROHANCE 279.3MG/ML 15ML VIAL As Ordered ONE
== END ==
LOC: M RAD 10:37
PROVIDERS: ATTEND Nurse Practitioner Women's Health
DX: Z91.89 Other specified personal risk factors, not elsewhere classified (principal); Z80.3 Family history of malignant neoplasm of breast
CPT/HCPCS: A9576; C8908

== ENCOUNTER → 2021-07-17 | Outpatient (CLI) | payer OTHER ==
[~2021-07-17] MED LIST changes: -PROHANCE 279.3MG/ML 15ML VIAL As Ordered ONE
[2021-07-17 10:16] LABS: BLOOD UREA NITROGEN 13 MG/DL (7-18); CALCIUM LEVEL 9.6 MG/DL (8.5-10.1); CARBON DIOXIDE LEVEL 28 MEQ/L (21-32); CHLORIDE LEVEL 107 MEQ/L (98-107); CREATININE FOR GFR 0.65 MG/DL (0.55-1.30); GLOMERULAR FILTRATION RATE > 60.0 (>51); GLUCOSE, FASTING 75 MG/DL (70-100); MAGNESIUM LEVEL 2.2 MG/DL (1.8-2.4); POTASSIUM SERUM 3.8 MEQ/L (3.5-5.1); SODIUM LEVEL 142 MEQ/L (136-145)
[2021-07-17 11:05] LABS: TOTAL 25(OH) VITAMIN D 20.6 NG/ML (30.0-100.0)
== END ==
LOC: M LAB 08:47
PROVIDERS: ATTEND Family Medicine
DX: E55.9 Vitamin D deficiency, unspecified (principal); R25.2 Cramp and spasm

== ENCOUNTER 2021-07-25 02:55 | Emergency (ER) | payer OTHER ==
[~2021-07-25] VITALS: Ht 162.6 cm; Wt 59.1 kg
[2021-07-25] MEDS ORDERED: KETOROLAC 30 MG/ML 1ML VIAL IV ONE (06:25)
[2021-07-25 06:38] LABS: BASO % 0.4 % (0.0-1.0); EOS % 0.4 % (0.0-3.0); HEMATOCRIT 37.7 % (36.0-47.0); LYMPH # 1.4 10^3/uL (1.5-5.0); LYMPH % 17.3 % (24.0-44.0); MEAN CORPUSCULAR HEMOGLOBIN 32.2 pg (27.0-33.0); MEAN CORPUSCULAR HGB CONC 34.5 g/dl (32.0-36.5); MEAN CORPUSCULAR VOLUME 93.3 fl (80.0-96.0); MONO # 0.3 10^3/uL (0.0-0.8); MONO % 3.2 % (2.0-8.0); NEUTROPHILS # 6.6 10^3/uL (1.5-8.5); NEUTROPHILS % 78.6 % (36.0-66.0); PLATELET COUNT, AUTOMATED 206 10^3/uL (150-450); RED BLOOD COUNT 4.04 10^6/uL (4.00-5.40); WHITE BLOOD COUNT 8.3 10^3/uL (4.0-10.0)
[2021-07-25 07:00] LABS: ALBUMIN 3.4 GM/DL (3.2-5.2); ALT/SGPT 22 U/L (12-78); BILIRUBIN,DIRECT 0.2 MG/DL (0.0-0.2); BILIRUBIN,TOTAL 0.8 MG/DL (0.2-1.0); BLOOD UREA NITROGEN 13 MG/DL (7-18); CALCIUM LEVEL 9.4 MG/DL (8.5-10.1); CARBON DIOXIDE LEVEL 24 MEQ/L (21-32); CHLORIDE LEVEL 113 MEQ/L (98-107); CREATININE FOR GFR 0.74 MG/DL (0.55-1.30); GLOMERULAR FILTRATION RATE > 60.0 (>51); GLUCOSE, FASTING 88 MG/DL (70-100); LIPASE 115 U/L (73-393); SODIUM LEVEL 143 MEQ/L (136-145); TOTAL PROTEIN 6.9 GM/DL (6.4-8.2)
[2021-07-25 07:01] LABS: CK-MB VALUE MASS < 1.0 NG/ML (<3.6); CPK CREATINE PHOSPHOKINASE 92 U/L (26-192); MB/CK RELATIVE INDEX 1.09 (< OR =4)
[2021-07-25] MEDS ORDERED: ONDA4TAB6 PO (07:05)
[2021-07-25 07:30] VITALS: BP 140/73
== END 2021-07-25 07:30 | disposition home or self-care (01) ==
LOC: M ED 02:55
DX: R10.84 Generalized abdominal pain (principal); R11.2 Nausea with vomiting, unspecified; R94.31 Abnormal electrocardiogram [ECG] [EKG]; C50.919 Malignant neoplasm of unspecified site of unspecified female breast; F17.200 Nicotine dependence, unspecified, uncomplicated; Z79.899 Other long term (current) drug therapy; Z87.442 Personal history of urinary calculi
CPT/HCPCS: 80047; 80048; 80076; 82550; 82553; 83605; 83690; 84484; 85025; 87486; 87581; 87633; 87798; 93005; 93041; 96374; 99284; J1885

== ENCOUNTER 2021-11-30 08:10 | Emergency (ER) | payer OTHER ==
[~2021-11-30] VITALS: Ht 160 cm; Wt 63.9 kg
[2021-11-30 08:11] VITALS: BP 144/81
[2021-11-30] MEDS ORDERED: ERGO500029 (08:20)
[2021-11-30] MEDS ORDERED: CYCL-707 (08:20)
[2021-11-30] MEDS ORDERED: ACETAMINOPHEN 500 MG TAB PO ONE (08:25)
[2021-11-30] MEDS ORDERED: KETOROLAC 30 MG/ML 1ML VIAL IV ONE (09:15)
== END 2021-11-30 10:36 | disposition home or self-care (01) ==
LOC: M ED 08:10
DX: M25.462 Effusion, left knee (principal); K58.9 Irritable bowel syndrome, unspecified; M54.50 Low back pain, unspecified; Z79.899 Other long term (current) drug therapy
CPT/HCPCS: 73564; 96374; 99284; J1885

== ENCOUNTER → 2021-12-20 | Outpatient (CLI) | payer OTHER ==
[~2021-12-20] MED LIST changes: +CYCL-707; +ERGO500029
== END ==
LOC: M RAD 08:20
PROVIDERS: ATTEND Family Medicine
DX: M54.50 Low back pain, unspecified (principal)

== ENCOUNTER 2022-03-08 05:11 | Emergency (ER) | payer OTHER ==
[~2022-03-08] VITALS: Ht 160 cm; Wt 63.7 kg
[2022-03-08] MEDS ORDERED: AMOX875T PO (05:20)
[2022-03-08] MEDS ORDERED: LIDOCAINE VISCOUS 2% SOLN 15ML UDC SS STA (07:41)
[2022-03-08] MEDS ORDERED: PSEUDOEPHEDRINE 30 MG TAB PO STA (07:41)
[2022-03-08] MEDS ORDERED: DOCUSATE SOD LIQ 100MG/10ML UDC PO ONE (07:45)
[2022-03-08] MEDS ORDERED: BENZONATATE 100MG CAPSULE PO ONE (07:45)
[2022-03-08] MEDS ORDERED: DOCUSATE SOD LIQ 100MG/10ML UDC XX ONE (08:00)
[2022-03-08] MEDS ORDERED: CEFDINIR 300 MG CAP (OMNICEF) PO ONE (09:05)
[2022-03-08] MEDS ORDERED: LIDO2SOL17 PO (09:06)
[2022-03-08] MEDS ORDERED: BENZ200C70 PO (09:06)
[2022-03-08] MEDS ORDERED: PSEU120T19 PO (09:06)
[2022-03-08] MEDS ORDERED: MUCI1TAB16 PO (09:06)
[2022-03-08] MEDS ORDERED: CEFD300C41 PO (09:14)
[2022-03-08 09:25] VITALS: BP 136/86
== END 2022-03-08 09:26 | disposition home or self-care (01) ==
LOC: M ED 05:11
DX: J06.9 Acute upper respiratory infection, unspecified (principal); H66.91 Otitis media, unspecified, right ear; K58.9 Irritable bowel syndrome, unspecified; F17.200 Nicotine dependence, unspecified, uncomplicated; Z79.899 Other long term (current) drug therapy

== ENCOUNTER 2022-03-12 22:01 | Emergency (ER) | payer OTHER ==
[~2022-03-12] VITALS: Ht 160 cm; Wt 61.4 kg
[~2022-03-12 22:01] MED LIST changes: +AMOX875T PO; +BENZ200C70 PO; +CEFD300C41 PO; +LIDO2SOL17 PO; +MUCI1TAB16 PO; +PSEU120T19 PO
[2022-03-13 01:13] LABS: BASO % 0.3 % (0.0-1.0); EOS # 0.1 10^3/uL (0.0-0.5); HEMATOCRIT 41.2 % (36.0-47.0); HEMOGLOBIN 13.5 g/dl (12.0-15.5); LYMPH # 2.1 10^3/uL (1.5-5.0); LYMPH % 28.3 % (24.0-44.0); MEAN CORPUSCULAR HEMOGLOBIN 30.8 pg (27.0-33.0); MEAN CORPUSCULAR HGB CONC 32.8 g/dl (32.0-36.5); MEAN CORPUSCULAR VOLUME 93.8 fl (80.0-96.0); MONO # 0.3 10^3/uL (0.0-0.8); MONO % 4.1 % (2.0-8.0); NEUTROPHILS # 4.8 10^3/uL (1.5-8.5); PLATELET COUNT, AUTOMATED 181 10^3/uL (150-450); RED BLOOD COUNT 4.39 10^6/uL (4.00-5.40); WHITE BLOOD COUNT 7.3 10^3/uL (4.0-10.0)
[2022-03-13 01:24] LABS: INR 0.83; PROTHROMBIN TIME 11.6 SECONDS (12.5-14.5)
[2022-03-13 01:39] LABS: LIPASE 28 U/L (12-53)
[2022-03-13 01:40] LABS: CK-MB VALUE MASS < 1.0 NG/ML (<3.6)
[2022-03-13 01:41] LABS: AMYLASE 91 U/L (30-118)
[2022-03-13 01:42] LABS: ALBUMIN 3.4 G/DL (3.2-5.2); ALKALINE PHOSPHATASE 75 U/L (46-116); ALT/SGPT 16 U/L (7.0-40); AST/SGOT 20 U/L (<34); BILIRUBIN,DIRECT 0.2 MG/DL (<0.4); BILIRUBIN,TOTAL 0.8 MG/DL (0.3-1.2); BLOOD UREA NITROGEN 20 MG/DL (9-23); CALCIUM LEVEL 9.1 MG/DL (8.5-10.1); CARBON DIOXIDE LEVEL 28 MMOL/L (20-31); CHLORIDE LEVEL 107 MMOL/L (98-107); CPK CREATINE PHOSPHOKINASE 31 U/L (34-145); CREATININE FOR GFR 0.76 MG/DL (0.55-1.30); GLOMERULAR FILTRATION RATE > 60.0 (>51); GLUCOSE, FASTING 107 MG/DL (60-100); MB/CK RELATIVE INDEX 3.22 (< OR =4); POTASSIUM SERUM 4.6 MMOL/L (3.5-5.1); SODIUM LEVEL 140 MMOL/L (136-145); TOTAL PROTEIN 6.7 G/DL (5.7-8.2)
[2022-03-13] MEDS ORDERED: NS 1,000 ML IV ONE (04:20)
[2022-03-13] MEDS ORDERED: KETOROLAC 30 MG/ML 1ML VIAL IV ONE (04:20)
[2022-03-13] MEDS ORDERED: FLOM0.4C39 PO (04:51)
[2022-03-13] MEDS ORDERED: KETO10TAB PO (04:51)
[2022-03-13 05:00] VITALS: BP 154/85
[2022-03-13] MEDS ORDERED: TAMSULOSIN 0.4 MG CAP PO ONE (06:00)
[2022-03-13] MEDS ORDERED: OXYCODONE/APAP 5MG/325MG(HOME DOSE PACK) PO ONE (06:00)
== END 2022-03-13 05:14 | disposition home or self-care (01) ==
LOC: M ED 22:01
DX: N20.1 Calculus of ureter (principal); F17.200 Nicotine dependence, unspecified, uncomplicated; Z87.442 Personal history of urinary calculi; Z79.811 Long term (current) use of aromatase inhibitors; Z79.2 Long term (current) use of antibiotics; Z79.899 Other long term (current) drug therapy
CPT/HCPCS: 74176; 80048; 80076; 81000; 81015; 82150; 82550; 82553; 83690; 84484; 85025; 85610; 93005; 93041; 96361; 96374; 99284; J1885

== ENCOUNTER → 2022-03-28 | Outpatient (CLI) | payer OTHER, BC ==
[~2022-03-28] MED LIST changes: +FLOM0.4C39 PO
[2022-03-28 12:43] LABS: HEMATOCRIT 40.3 % (36.0-47.0); HEMOGLOBIN 13.3 g/dl (12.0-15.5); MEAN CORPUSCULAR HEMOGLOBIN 30.5 pg (27.0-33.0); MEAN CORPUSCULAR VOLUME 92.4 fl (80.0-96.0); PLATELET COUNT, AUTOMATED 230 10^3/uL (150-450); RED BLOOD COUNT 4.36 10^6/uL (4.00-5.40)
[2022-03-28 12:55] LABS: INR 0.93; PROTHROMBIN TIME 12.7 SECONDS (12.5-14.5)
[2022-03-28 12:56] LABS: PARTIAL THROMBOPLASTIN TIME 24.7 SECONDS (24.8-34.2)
[2022-03-28 13:07] LABS: BLOOD UREA NITROGEN 15 MG/DL (9-23); CALCIUM LEVEL 9.5 MG/DL (8.5-10.1); CARBON DIOXIDE LEVEL 26 MMOL/L (20-31); CHLORIDE LEVEL 106 MMOL/L (98-107); CREATININE FOR GFR 0.98 MG/DL (0.55-1.30); GLOMERULAR FILTRATION RATE > 60.0 (>51); GLUCOSE, FASTING 93 MG/DL (60-100); POTASSIUM SERUM 3.4 MMOL/L (3.5-5.1); SODIUM LEVEL 139 MMOL/L (136-145)
[2022-03-28 15:01] LABS: APPEARANCE, URINE MANUAL HAZY (CLEAR); COLOR, URINE MANUAL DK YELLOW (YELLOW)
[2022-03-28 15:03] LABS: PROTEIN, URINE MANUAL 1+ mg/dL (NEGATIVE)
[2022-03-28 15:04] LABS: BILIRUBIN, URINE MANUAL NEGATIVE (NEGATIVE); BLOOD URINE MANUAL POSITIVE (NEGATIVE); GLUCOSE, URINE (UA) MANUAL NEGATIVE (NEGATIVE); KETONE, URINE MANUAL NEGATIVE (NEGATIVE); LEUKOCYTE ESTERASE, URINE MAN POSITIVE (NEGATIVE); NITRITE, URINE MANUAL NEGATIVE (NEGATIVE); UROBILINOGEN, URINE MANUAL NORMAL (NORMAL)
[2022-03-28 15:56] LABS: RBC, URINE 20-30 /hpf (0-3); WBC, URINE TNTC /hpf (0-3)
[2022-03-28 15:57] LABS: BACTERIA, URINE SMALL AMOUNT; HYALINE CAST, URINE NONE SEEN /lpf (0-1); MUCUS, URINE LARGE AMOUNT (NEGATIVE); SQUAMOUS EPITHELIAL CELL URINE MOD AMOUNT /hpf (SMALL AMT)
== END ==
LOC: M RAD 11:56
PROVIDERS: ATTEND Nurse Practitioner Women's Health
DX: Z01.818 Encounter for other preprocedural examination (principal); N20.0 Calculus of kidney

== ENCOUNTER → 2022-03-30 | Outpatient (CLI) | payer OTHER, BC | LOC: M LABSMTC 10:32 | PROVIDERS: ATTEND Anesthesiology | DX: Z01.812 Encounter for preprocedural laboratory examination (principal); Z11.52 Encounter for screening for COVID-19 ==

== ENCOUNTER 2022-04-04 07:23 | Day surgery (SDC) | payer BC, OTHER ==
[~2022-04-04] VITALS: Ht 160 cm; Wt 63.5 kg
[~2022-04-04 07:23] MED LIST changes: +ISOVUE-300 61% 50ML VIAL As Ordered ONE; +ceFAZolin SOD 2 GM in IV 1 EA IV ONE
[2022-04-04] MEDS ORDERED: ONDANSETRON 4MG 2ML VIAL As Ordered ONE (08:01)
[2022-04-04] MEDS ORDERED: LIDOCAINE 2% 100MG/5ML SDV (FOR ANES.) As Ordered ONE (08:01)
[2022-04-04] MEDS ORDERED: propofoL 200 MG/20 ML VIAL As Ordered ONE (08:01)
[2022-04-04] MEDS ORDERED: fentaNYL 100 MCG/2 ML INJECTION As Ordered ONE (08:08)
[2022-04-04] MEDS ORDERED: MIDAZOLAM INJ 2MG/2ML VIAL As Ordered ONE (08:08)
[2022-04-04] MEDS ORDERED: LR 1,000 ML IV SCH ×2 (08:50→10:50)
[2022-04-04] MEDS ORDERED: ACETAMINOPHEN 1000MG 100ML IV BAG As Ordered ONE (09:33)
[2022-04-04] MEDS ORDERED: PHENYLephrine 500MCG 5ML (100MCG/ML) SYRINGE As Ordered ONE (10:01)
[2022-04-04] MEDS ORDERED: fentaNYL 100 MCG/2 ML INJECTION IV PRN (10:50)
[2022-04-04] MEDS ORDERED: ONDANSETRON 4MG 2ML VIAL IV PRN (10:50)
[2022-04-04] MEDS ORDERED: METOCLOPRAMIDE INJ 10MG/2ML VIAL IV PRN (10:50)
[2022-04-04] MEDS ORDERED: PERCOCET 5MG/325MG TAB PO PRN (11:00)
[2022-04-04] MEDS ORDERED: oxyBUTYnin 5 MG TAB PO PRN (11:00)
[2022-04-04] MEDS ORDERED: PERCOCET PO (11:07)
[2022-04-04] MEDS ORDERED: OXYB5TAB10 PO (11:07)
[2022-04-04] MEDS: HYDROMORPHONE HCL 0.5 MG/ 0.5 ML SYRINGE IV PRN ×3 (11:14→11:37)
[2022-04-04] MEDS: oxyCODONE 5MG TAB PO PRN ×2 (11:14→11:45)
[2022-04-04 14:00] VITALS: BP 110/55
[2022-04-08 19:07] LABS: CA Oxalate Dihy 90 % (.); Ca Ox Monohydrate 5 % (.); Size 5x3 mm (.)
== END 2022-04-04 14:05 | disposition home or self-care (01) ==
LOC: M SDC 07:23
PROVIDERS: ATTEND Urology
DX: N20.0 Calculus of kidney (principal); K21.9 Gastro-esophageal reflux disease without esophagitis; Z79.899 Other long term (current) drug therapy; Z88.8 Allergy status to other drugs, medicaments and biological substances; Z80.0 Family history of malignant neoplasm of digestive organs; Z80.3 Family history of malignant neoplasm of breast; Z82.49 Family history of ischemic heart disease and other diseases of the circulatory system; F17.210 Nicotine dependence, cigarettes, uncomplicated; E55.9 Vitamin D deficiency, unspecified
CPT/HCPCS: 52356; 74420; 82365; C1769; C1894; C2617; J0131; J0690; J1100; J1170; J2250; J2370; J2405; J3010

== ENCOUNTER → 2022-04-28 | Outpatient (CLI) | payer OTHER ==
[~2022-04-28] MED LIST changes: -ISOVUE-300 61% 50ML VIAL As Ordered ONE; +LIDO15SO4 PO; -LIDO2SOL17 PO; +OXYB5TAB10 PO; +PERCOCET PO; -ceFAZolin SOD 2 GM in IV 1 EA IV ONE
== END ==
LOC: M WHC 10:20
PROVIDERS: ATTEND Nurse Practitioner Family
DX: Z12.31 Encounter for screening mammogram for malignant neoplasm of breast (principal)

== ENCOUNTER → 2022-04-28 | Outpatient (REF) | payer OTHER, BC | LOC: M SFHCWAGY 17:31 | PROVIDERS: ATTEND Nurse Practitioner Family | DX: Z12.4 Encounter for screening for malignant neoplasm of cervix (principal); R87.610 Atypical squamous cells of undetermined significance on cytologic smear of cervix (ASC-US) | CPT/HCPCS: 87624; G0123 ==

== ENCOUNTER → 2022-04-29 | Outpatient (CLI) | payer OTHER, BC | LOC: M LAB 07:11 | PROVIDERS: ATTEND Family Medicine | DX: E55.9 Vitamin D deficiency, unspecified (principal) ==

== ENCOUNTER → 2022-10-20 | Outpatient (CLI) | payer BC ==
[~2022-10-20] MED LIST changes: +LIDO15SO PO; -LIDO15SO4 PO
== END ==
LOC: M PLAIMG 10:15
PROVIDERS: ATTEND Urology
DX: N20.0 Calculus of kidney (principal)

== ENCOUNTER → 2023-03-31 | Outpatient (REF) | payer BC ==
[~2023-03-31] MED LIST changes: +CEFD1CAP9 PO; -CEFD300C41 PO; -OXYB5TAB10 PO; +OXYB5TAB11 PO
== END ==
LOC: M SFHCDERM 14:03
PROVIDERS: ATTEND Nurse Practitioner Family
DX: L82.0 Inflamed seborrheic keratosis (principal)

== ENCOUNTER → 2023-04-28 | Outpatient (REF) | payer BC ==
[~2023-04-28] MED LIST changes: -OXYB5TAB11 PO; +OXYB5TAB14 PO
== END ==
LOC: M SFHCDERM 13:59
PROVIDERS: ATTEND Nurse Practitioner Family
DX: L82.1 Other seborrheic keratosis (principal)

== ENCOUNTER → 2023-04-30 | Outpatient (REF) | payer BC | LOC: M SFHCWAGY 13:27 | PROVIDERS: ATTEND Nurse Practitioner Family | DX: Z12.4 Encounter for screening for malignant neoplasm of cervix (principal) | CPT/HCPCS: 87624; G0123 ==

== ENCOUNTER → 2023-04-30 | Outpatient (CLI) | payer BC | LOC: M WHC 09:29 | PROVIDERS: ATTEND Nurse Practitioner Family | DX: Z12.31 Encounter for screening mammogram for malignant neoplasm of breast (principal) ==

== ENCOUNTER → 2023-10-23 | Outpatient (CLI) | payer BC ==
[~2023-10-23] MED LIST changes: -LIDO15SO PO; +LIDO15SO8 PO; +ONDA-282 PO; -ONDA4TAB6 PO
== END ==
LOC: M RAD 11:05
PROVIDERS: ATTEND Urology
DX: N20.0 Calculus of kidney (principal)

== ENCOUNTER 2024-01-14 03:58 | Emergency (ER) | payer BC ==
[~2024-01-14] VITALS: Ht 160 cm; Wt 66.9 kg
[2024-01-14] MEDS ORDERED: KETOROLAC 60MG 2ML VIAL IM ONE (06:55)
[2024-01-14] MEDS: KETOROLAC 60MG 2ML VIAL IM ONE (06:55)
[2024-01-14 07:32] VITALS: BP 111/59; TEMP 98.7; O2SAT 96
[2024-01-14] MEDS ORDERED: PRED20TA PO (07:42)
== END 2024-01-14 08:21 | disposition home or self-care (01) ==
LOC: M ED 03:58
DX: M43.16 Spondylolisthesis, lumbar region (principal); M43.17 Spondylolisthesis, lumbosacral region; M54.50 Low back pain, unspecified; M79.651 Pain in right thigh; M79.652 Pain in left thigh; K58.9 Irritable bowel syndrome, unspecified; Z79.899 Other long term (current) drug therapy; Z79.52 Long term (current) use of systemic steroids; Z87.442 Personal history of urinary calculi
CPT/HCPCS: 72131; 96372; 99283; J1885

== ENCOUNTER → 2024-05-04 | Outpatient (CLI) | payer BC ==
[~2024-05-04] MED LIST changes: -ALIG4CAP PO; +ALIG4CAP3 PO; +PRED20TA PO
== END ==
LOC: M WHC 14:52
PROVIDERS: ATTEND Nurse Practitioner Family
DX: Z12.31 Encounter for screening mammogram for malignant neoplasm of breast (principal); R92.333 Mammographic heterogeneous density, bilateral breasts